=== PATIENT | male | born 1970 | race Caucasian/White ===

== ENCOUNTER 2021-05-19 22:36 | Inpatient (IN) | payer OTHER ==
--- NOTE | 2021-05-19 23:27 | ED ---
Recheck HPI - General Chief Complaint: Skin/Abscess/Foreign Body Stated Complaint: ABD Pain Time Seen by Provider: 05/19/21 23:10 Source: patient Mode of arrival: ambulatory Limitations: no limitations - Related Data Home Medications Medication Instructions Recorded Confirmed Esomeprazole Magnesium [NexIUM 20 mg PO DAILY 05/19/21 05/19/21 24Hr] Fexofenadine HCl [Aubrie Allergy] 180 mg PO DAILY 05/19/21 05/19/21 Allergies Allergy/AdvReac Type Severity Reaction Status Date / Time No Known Allergies Allergy Verified 05/19/21 23:43 Review of Systems ROS Statement: Those systems with pertinent positive or pertinent negative responses have been documented in the HPI. ROS Other: All systems not noted in ROS Statement are negative. Past Medical History Past Medical History: No Reported History History of Any Multi-Drug Resistant Organisms: None Reported Past Surgical History: No Surgical Hx Reported Past Psychological History: No Psychological Hx Reported Smoking Status: Current some day smoker Past Alcohol Use History: None Reported Past Drug Use History: None Reported General Exam Limitations: no limitations Course Vital Signs 05/19/21 23:16 Temperature 99.5 F Pulse Rate 101 H Respiratory 18 Rate Blood Pressure 150/76 O2 Sat by Pulse 98 Oximetry Disposition Clinical Impression: Abscess of right lung with pneumonia, Empyema Disposition: ADMITTED IP TO THIS HOSP Condition: Serious Is patient prescribed a controlled substance at d/c from ED?: No Referrals: None,Stated [REFERRING] - 1-2 days
[2021-05-19] MEDS ORDERED: PNEUMONIA PROTOCOL UTILIZED 1 EACH MISC PO PRN (23:48)
[2021-05-19] MEDS ORDERED: VANCOMYCIN IV PER PHARMACY 1 EACH MISC MISCELLANE PRN (23:48)
[2021-05-19] MEDS ORDERED: NALOXONE 0.4 MG/ML 1 ML VIAL IV PRN (23:48)
[2021-05-19] MEDS ORDERED: ONDANSETRON 4 MG/2 ML VIAL IVP PRN (23:48)
[2021-05-19] MEDS ORDERED: LEVOFLOXACIN 750MG-D5W PMX 750 MG in DEXTROSE/WATER 1 150ML.BAG IVPB STA (23:48)
[2021-05-20] MEDS ORDERED: VANCOMYCIN 1,500 MG in SODIUM CHLORIDE 0.9% 250 ML IVPB ONE (00:15)
[2021-05-20 00:49] LABS: Basophils # (A) 0.1 k/uL (0-0.2); Basophils % (A) 0 %; Eosinophils # (A) 0.1 k/uL (0-0.7); Eosinophils % (A) 0 %; HCT 38.9 % (39.0-53.0); HGB 12.8 gm/dL (13.0-17.5); Lymphocytes # (A) 2.9 k/uL (1.0-4.8); Lymphocytes % (A) 14 %; MCH 28.6 pg (25.0-35.0); MCV 86.7 fL (80.0-100.0); Mean Platelet Volume 7.3; Monocytes # (A) 1.1 k/uL (0-1.0); Monocytes % (A) 5 %; Neutrophils # (A) 15.8 k/uL (1.3-7.7); Neutrophils % (A) 77 %; Platelet Count 457 k/uL (150-450); RBC 4.49 m/uL (4.30-5.90); RDW 13.4 % (11.5-15.5); WBC 20.4 k/uL (3.8-10.6)
[2021-05-20] MEDS ORDERED: NICOTINE 21MG/24HR PATCH TRANSDERM STA (01:19)
--- NOTE | 2021-05-20 01:27 | XR ---
EXAMINATION TYPE: XR chest 1V portable DATE OF EXAM: 05/20/2021 COMPARISON: Yesterday HISTORY: Lung abscess TECHNIQUE: Single view FINDINGS: There is 11 cm rounded area of consolidation over the right lower lung field. There is blun ting right costophrenic angles. The left lung is clear. Heart size is normal. There is no heart failu re. IMPRESSION: Right lower lobe mass with right pleural effusion appears slightly increased in size comp ared to yesterday and consistent with lung abscess.
[2021-05-20] MEDS: SODIUM CHLORIDE 0.9% 1,000 ML IV SCH ×3 (01:29→22:59)
[2021-05-20] MEDS: metroNIDAZOLE-NS PMX 500 MG in SALINE 1 100ML.BAG IVPB SCH ×2 (02:13→08:11)
[2021-05-20 05:54] LABS: ALT 34 U/L (4-49); AST 32 U/L (17-59); African American GFR (CKD) >90 (>60 ml/min/1.73 sqM); Albumin 2.9 g/dL (3.5-5.0); Alkaline Phosphatase 161 U/L (38-126); Anion Gap 9 mmol/L; Blood Urea Nitrogen 11 mg/dL (9-20); Calcium 8.1 mg/dL (8.4-10.2); Carbon Dioxide 26 mmol/L (22-30); Chloride 104 mmol/L (98-107); Glucose 105 mg/dL (74-99); Lipase 72 U/L (23-300); Magnesium 1.6 mg/dL (1.6-2.3); Non-African American GFR(CKD) >90 (>60 ml/min/1.73 sqM); Phosphorus 3.3 mg/dL (2.5-4.5); Potassium 3.9 mmol/L (3.5-5.1); Sodium 139 mmol/L (137-145); Total Bilirubin 0.3 mg/dL (0.2-1.3); Total Protein 6.1 g/dL (6.3-8.2)
[2021-05-20] MEDS: IPRATROPIUM-ALBUTEROL 3 ML NEB INHALATION PRN (08:22)
[2021-05-20] MEDS: PANTOPRAZOLE 40 MG/10 ML VIAL IV SCH (09:26)
[2021-05-20] MEDS: NICOTINE 21MG/24HR PATCH TRANSDERM SCH (09:34)
--- NOTE | 2021-05-20 10:36 | P.CNPUL ---
History of Present Illness Consult date: 05/20/21 Reason for consult: dyspnea History of present illness: Healthy 51-year-old male patient coming in for increased shortness of breath. The patient developed a pneumonia approximately March 2021. At that time the diagnosis was made in the emergency department at [facility]. He had a right lower lobe pneumonia. He was experiencing some pleuritic right-sided chest pain. He was given a combination of Augmentin and Diflucan he was disch arged home. He was not hospitalized. The patient felt better, however he did not normalize completely. The pain is subsided. He continued to have some cough and shortness of breath and for that reason he went back to the emergency department and the patient had a CAT scan of the chest that showed a large right lower lobe posterior segment and severe segment fluid collection consistent with an abscess with adjacent atelectasis. His current white cell count is 20. He is on room air oxygen. No fever. No chills. No night sweats. Appetite is good. Renal function stable. Electrodes are within normal limits. No history of COPD. Is a smoker. No nausea. No vomiting. No diarrhea. No other complaints. No recurrent bouts of pneumonias. No active any malignancy. Review of Systems Constitutional: Reports fatigue Eyes: denies as per HPI, denies blurred vision, denies bulging eye, denies decreased vision, denies diplopia, denies discharge, denies dry eye, denies irritation, denies itching, denies pain, denies photophobia, denies loss of peripheral vision, denies loss of vision, denies tunnel vision/blind spots Ears: deny: decreased hearing, ear discharge, earache, tinnitus Ears, nose, mouth and throat: Reports as per HPI Breasts: absent: as per HPI, gynecomastia Cardiovascular: Reports as per HPI Respiratory: Reports cough, Reports dyspnea Gastrointestinal: Reports as per HPI Genitourinary: Reports as per HPI Musculoskeletal: Reports as per HPI Musculoskeletal: absent: ankle pain, ankle stiffness, ankle swelling Integumentary: Reports as per HPI Neurological: Reports as per HPI Psychiatric: Reports as per HPI Endocrine: Reports as per HPI Hematologic/Lymphatic: Reports as per HPI Allergic/Immunologic: Reports as per HPI Past Medical History Past Medical History: No Reported History, Pneumonia History of Any Multi-Drug Resistant Organisms: None Reported Past Surgical History: No Surgical Hx Reported Past Psychological History: No Psychological Hx Reported Smoking Status: Current some day smoker Past Alcohol Use History: None Reported Past Drug Use History: None Reported Medications and Allergies Home Medications Medication Instructions Recorded Confirmed Type Esomeprazole Magnesium [NexIUM 20 mg PO DAILY 05/19/21 05/19/21 History 24Hr] Fexofenadine HCl [Aubrie Allergy] 180 mg PO DAILY 05/19/21 05/19/21 History Allergies Allergy/AdvReac Type Severity Reaction Status Date / Time No Known Allergies Allergy Verified 05/19/21 23:43 Physical Exam Vitals: Vital Signs Temp Pulse Resp BP Pulse Ox 05/20/21 08:37 110 H 05/20/21 08:28 107 H 05/20/21 08:13 86 16 142/84 95 05/20/21 01:46 90 20 120/75 96 05/19/21 23:16 99.5 F 101 H 18 150/76 98 Intake and Output 05/19/21 05/20/21 05/20/21 22:59 06:59 14:59 Other: Weight 79.832 kg The patient appeared well nourished and normally developed. Vital signs as documented. Head exam is unremarkable. No scleral icterus or corneal arcus noted. Neck is without jugular venous distension, thyromegaly, or carotid bruits. Carotid upstrokes are brisk bilaterally. Lungs are diminished in the right lung base along with that there is dullness to percussion. Left lung essentially clear. Cardiac exam reveals the PMI to be normally sized and situated. Rhythm is regular. First and second heart sounds normal. No murmurs, rubs or gallops. Abdominal exam reveals normal bowel sounds, no masses, no organomegaly and no aortic enlargement. Extremities are nonedematous and both femoral and pedal pulses are normal.Examination of the skin revealed no evidence of significant rashes, suspicious appearing nevi or other concerning lesions.Neurologically, the patient is awake and alert and the patient does not have any focal neurological deficit. Cranial nerves are essentially intact. Results - Laboratory Findings CBC and BMP: 05/20/21 00:34 05/20/21 04:54 Abnormal lab findings: Abnormal Labs 05/20/21 05/20/21 00:34 04:54 WBC 20.4 H Hgb 12.8 L Hct 38.9 L Plt Count 457 H Neutrophils # 15.8 H Monocytes # 1.1 H Creatinine 0.65 L Glucose 105 H Calcium 8.1 L Alkaline Phosphatase 161 H Total Protein 6.1 L Albumin 2.9 L - Diagnostic Findings Chest x-ray: image reviewed CT scan - chest: image reviewed Assessment and Plan Plan: 1 Right lung abscess involving the posterior/superior segment of the right lower lobe. This is a fairly large abscess reaching the pleural surface with adjacent atelectasis and some limited consolidation. 2 right lower lobe pneumonia, March 2021 3 dyspnea and cough secondary to above 4 leukocytosis 5 smoker Plan Reviewed the CAT scan findings Discussed the case with interventional radiology Findings are very consistent with lung abscess The lung abscesses is very on the blood for a fine-needle aspirate and percutaneous drainage with a pigtail catheter. Discussed the case with Dr. Joel Romero M.D., interventional radiology. The procedure will be done today on the CAT scan guidance. We'll put the patient accommodation Zosyn and vancomycin. Will need long-term antibiotics probably in order of 4-6 weeks We'll consult infectious disease We'll provide the patient incentive spirometer We'll obtain fluid from the percutaneous drainage and send it for cultures Smoking cessation counseling Nicotine patch We'll follow.
[2021-05-20 12:05] LABS: INR 1.1 (<1.2); Prothrombin Time 11.4 sec (9.0-12.0)
--- NOTE | 2021-05-20 12:55 | XR ---
EXAMINATION TYPE: XR chest 1V portable DATE OF EXAM: 05/20/2021 Comparison: Earlier today Clinical History: 51-year-old male post right-sided chest drain insertion Findings: A pigtail pleural catheter is now present in the right base. No appreciable pneumothorax. Effusion an d large rounded opacity persist in the right mid and lower lung. Heart normal size. Impression: Relatively stable exam with small right effusion and known right lung abscess. New placement of a pig tail pleural catheter at the right base.
--- NOTE | 2021-05-20 13:20 | CT ---
EXAMINATION TYPE: CT chest tube insertion percutaneous lung abscess drainage DATE OF EXAM: 05/20/2021 COMPARISON: CT from outside institution dated 05/19/2021 HISTORY: right lung abscess CT DLP: 488 mGycm Automated exposure control for dose reduction was used. FINDINGS: Following informed consent, the skin overlying a suitable path to the abscess was localized with CT a nd the overlying skin was prepped and draped. Lidocaine was used for local anesthesia. Skin carly was made with a scalpel. 21-gauge needle was advanced into the collection and purulent material was obtai jack in the hub of the needle. A 0.018 inch wire was advanced and subsequently the wire was upsized fo r a transitional catheter and a 8.5 [place] catheter was advanced over the in upsized wire into the ab scess. 20 cc of purulent material were aspirated for laboratory analysis. Procedure stasis achieved. Catheter was fixed in place. No immediate complication. Patient remained i n stable condition. Post procedure chest x-ray pending. IMPRESSION: Status post lung abscess drainage, this procedure performed by the undersigned, microbiol ogy analysis is pending.
[2021-05-20] MEDS: MORPHINE SULFATE 4 MG/ML SYRINGE IV PRN ×2 (13:24→19:33)
[2021-05-20] MEDS: VANCOMYCIN 1,500 MG in SODIUM CHLORIDE 0.9% 250 ML IVPB SCH ×2 (14:01→19:56)
--- NOTE | 2021-05-20 14:01 | P.HPIM ---
History of Present Illness This is a pleasant 51 years old male with no significant past medical history. Patient states that last late March he was an [facility] for pneumonia where he was treated with antibiotics and steroids, patient felt better and he couldn't lie down and then he was discharged home however over the last week and a half he started to develop coughing and headache when he is lying down with only mild dyspnea, no significant dyspnea. No chest pain. No fever. No chest in urine or bowel habits. Patient went back to the hospital again on CAT scan of the chest showed large right lower lobe fluid collection: Consistent with an abscess and adjacent atelectasis. Patient also is a smoker who decided to quit yesterday, patient is counseled and he agrees with nicotine patch. Occasional alcohol and no illicit drugs Diabetic and leukocytosis of the 20.4. Rest of CBC, BMP and liver enzymes are unremarkable Chest x-ray showing small right effusion with known right lung abscess. New placement of a pigtail pleural catheter as the right base Vital showing tachycardia, rest of vital signs stable, patient is afebrile Patient is a started on IV vancomycin and Zosyn Review of Systems CONSTITUTIONAL: No fever, no malaise, no fatigue. HEENT: No recent visual problems or hearing problems. Denied any sore throat. CARDIOVASCULAR: No orthopnea, PND, no palpitations, no syncope. -PULMONARY: No shortness of breath, no hemoptysis. GASTROINTESTINAL: No diarrhea, no nausea, no vomiting, no abdominal pain. Normoactive bowel sounds. NEUROLOGICAL: No headaches, no weakness, no numbness. HEMATOLOGICAL: Denies any bleeding or petechiae. GENITOURINARY: Denies any burning micturition, frequency, or urgency. MUSCULOSKELETAL/RHEUMATOLOGICAL: Denies any joint pain, swelling, or any muscle pain. ENDOCRINE: Denies any polyuria or polydipsia. Past Medical History Past Medical History: No Reported History, Pneumonia History of Any Multi-Drug Resistant Organisms: None Reported Past Surgical History: No Surgical Hx Reported Past Psychological History: No Psychological Hx Reported Smoking Status: Current some day smoker Past Alcohol Use History: None Reported Past Drug Use History: None Reported Medications and Allergies Home Medications Medication Instructions Recorded Confirmed Type Esomeprazole Magnesium [NexIUM 20 mg PO DAILY 05/19/21 05/19/21 History 24Hr] Fexofenadine HCl [Aubrie Allergy] 180 mg PO DAILY 05/19/21 05/19/21 History Allergies Allergy/AdvReac Type Severity Reaction Status Date / Time No Known Allergies Allergy Verified 05/19/21 23:43 Physical Exam Vitals: Vital Signs Temp Pulse Resp BP Pulse Ox 05/20/21 08:37 110 H 05/20/21 08:28 107 H 05/20/21 08:13 86 16 142/84 95 05/20/21 01:46 90 20 120/75 96 05/19/21 23:16 99.5 F 101 H 18 150/76 98 Intake and Output 05/19/21 05/20/21 05/20/21 22:59 06:59 14:59 Other: Weight 79.832 kg GENERAL: The patient is alert and oriented x3, not in any acute distress. Well developed, well nourished. HEENT: Pupils are round and equally reacting to light. EOMI. No scleral icterus. No conjunctival pallor. Normocephalic, atraumatic. No pharyngeal erythema. No thyromegaly. CARDIOVASCULAR: S1 and S2 present. No murmurs, rubs, or gallops. -PULMONARY: Chest is clear to auscultation, no wheezing or crackles. Right lower back just to tube ABDOMEN: Soft, nontender, nondistended, normoactive bowel sounds. No palpable organomegaly. MUSCULOSKELETAL: No joint swelling or deformity. EXTREMITIES: No cyanosis, clubbing, or pedal edema. NEUROLOGICAL: Gross neurological examination did not reveal any focal deficits. SKIN: No rashes. No petechiae Results CBC & Chem 7: 05/20/21 00:34 05/20/21 04:54 Labs: Abnormal Lab Results - Last 24 Hours (Table) 05/20/21 05/20/21 Range/Units 00:34 04:54 WBC 20.4 H (3.8-10.6) k/uL Hgb 12.8 L (13.0-17.5) gm/dL Hct 38.9 L (39.0-53.0) % Plt Count 457 H (150-450) k/uL Neutrophils # 15.8 H (1.3-7.7) k/uL Monocytes # 1.1 H (0-1.0) k/uL Creatinine 0.65 L (0.66-1.25) mg/dL Glucose 105 H (74-99) mg/dL Calcium 8.1 L (8.4-10.2) mg/dL Alkaline Phosphatase 161 H (38-126) U/L Total Protein 6.1 L (6.3-8.2) g/dL Albumin 2.9 L (3.5-5.0) g/dL Assessment and Plan Assessment: Right lung abscess related to recent diagnosis of pneumonia about a month ago Sepsis with leukocytosis and tachycardia secondary to above Nicotine dependence Plan: This is a pleasant 51 years old male who presents with right lung abscess. Continue with antibiotics, currently is on IV vancomycin and Zosyn. Continue with IV fluid currently is on normal saline at 100 mL per hour Pulmonary consult Continue with right chest tube Labs and medication were reviewed.. Continue same treatment. Continue with symptomatic treatment. Resume home medication. Monitor lytes and vitals. DVT and GI prophylaxis. Further recommendations depends on the clinical course of the patient DVT prophylaxis: Subcutaneous heparin GI Prophylaxis: Pepcid
[2021-05-20] MEDS: PIPERACILLIN-TAZOBACTAM 3.375 GM in SODIUM CHLORIDE 0.9% 100 ML IVPB SCH ×2 (16:47→23:59)
[2021-05-20 19:01] LABS: Appearance,BF Cloudy; Color,BF Yellow; Nucleated Cells, Body Fluid 45555 /uL; RBC, Body Fluid 0 /uL
[2021-05-20 19:03] LABS: Mononuclear WBC,Body Fluid 11 %; Polynuclear WBC,Body Fluid 89 %; Total Cells Counted,Body Fluid 100
[2021-05-20] MEDS: FAMOTIDINE 20 MG/2 ML VIAL IV SCH (19:35)
[2021-05-20] MEDS: HEPARIN SODIUM,PORCINE/PF 5,000 UNIT/0.5 ML SYRINGE SQ SCH (19:35)
[2021-05-21] MEDS ORDERED: LEVOFLOXACIN 750MG-D5W PMX 750 MG in DEXTROSE/WATER 1 150ML.BAG IVPB SCH (02:00)
[2021-05-21] MEDS: VANCOMYCIN 1,500 MG in SODIUM CHLORIDE 0.9% 250 ML IVPB SCH ×3 (04:22→20:42)
[2021-05-21] MEDS: MORPHINE SULFATE 4 MG/ML SYRINGE IV PRN ×2 (04:22→20:56)
[2021-05-21] MEDS: SODIUM CHLORIDE 0.9% 1,000 ML IV SCH ×2 (06:15→16:40)
[2021-05-21] MEDS: HEPARIN SODIUM,PORCINE/PF 5,000 UNIT/0.5 ML SYRINGE SQ SCH ×2 (08:44→20:42)
[2021-05-21] MEDS: FAMOTIDINE 20 MG/2 ML VIAL IV SCH ×2 (08:44→20:42)
[2021-05-21] MEDS: PIPERACILLIN-TAZOBACTAM 3.375 GM in SODIUM CHLORIDE 0.9% 100 ML IVPB SCH ×2 (08:45→16:43)
[2021-05-21] MEDS: NICOTINE 21MG/24HR PATCH TRANSDERM SCH (08:45)
[2021-05-21] MEDS: PANTOPRAZOLE 40 MG/10 ML VIAL IV SCH (08:45)
[2021-05-21 09:23] LABS: Basophils # (A) 0.09 X 10*3/uL (0.00-0.10); Basophils % (A) 0.7 %; Eosinophils # (A) 0.05 X 10*3/uL (0.04-0.35); Eosinophils % (A) 0.4 %; HCT 39.3 % (39.6-50.0); HGB 12.4 g/dL (13.0-17.0); Lymphocytes # (A) 2.62 X 10*3/uL (0.90-5.00); Lymphocytes % (A) 19.2 %; MCH 27.7 pg (27.0-32.0); MCHC 31.6 g/dL (32.0-37.0); MCV 87.7 fL (80.0-97.0); Mean Platelet Volume 10.6 fL (9.5-12.2); Monocytes # (A) 1.26 X 10*3/uL (0.20-1.00); Monocytes % (A) 9.2 %; Neutrophils # (A) 9.57 X 10*3/uL (1.80-7.70); Platelet Count 456 X 10*3/uL (140-440); RBC 4.48 X 10*6/uL (4.40-5.60); RDW 13.4 % (11.5-14.5); WBC 13.66 X 10*3/uL (4.50-10.00)
[2021-05-21] MEDS: IPRATROPIUM-ALBUTEROL 3 ML NEB INHALATION PRN (10:00)
--- NOTE | 2021-05-21 10:16 | P.PN ---
Subjective Progress Note Date: 05/21/21 Healthy 51-year-old male patient coming in for increased shortness of breath. The patient developed a pneumonia approximately March 2021. At that time the diagnosis was made in the emergency department at [facility]. He had a right lower lobe pneumonia. He was experiencing some pleuritic right-sided chest pain. He was given a combination of Augmentin and Diflucan he was discharged home. He was not hospitalized. The patient felt better, however he did not normalize completely. The pain is subsided. He continued to have some cough and shortness of breath and for that reason he went back to the emergency department and the patient had a CAT scan of the chest that showed a large right lower lobe posterior segment and severe segment fluid collection consistent with an abscess with adjacent atelectasis. His current white cell count is 20. He is on room air oxygen. No fever. No chills. No night sweats. Appetite is good. Renal function stable. Electrodes are within normal limits. No history of COPD. Is a smoker. No nausea. No vomiting. No diarrhea. No other complaints. No recurrent bouts of pneumonias. No active any malignancy. On today's evaluation on 05/21/2021 patient seen in follow-up on medical surgical floor. Yesterday a pigtail chest tube was put in in the right posterior chest, with initial drainage of 20 mL of purulent material, Pleuravac was connected, an additional 640 mL of purulent material was drained. On today's evaluation patient is on 3 L of oxygen his pulse ox is 92%, he states he breathing much more comfortably, some pressure in his right chest process, however it has improved since admission, he is on Zosyn and vancomycin for antibiotic coverage, no fever or chills overnight, his white blood cell count is improving on today's labs, follow-up chest x-ray is pending for today. Objective - Vital Signs Vital signs: Vital Signs Temp 98.3 F 05/21/21 09:35 Pulse 100 05/21/21 10:01 Resp 18 05/21/21 10:01 BP 127/77 05/21/21 09:35 Pulse Ox 92 L 05/21/21 09:35 Intake & Output 05/20/21 05/21/21 05/21/21 18:59 06:59 18:59 Output Total 640 Balance -640 Weight 79.832 kg Output: Drainage 640 Right Lateral Back 640 - Exam GENERAL EXAM: Alert, very pleasant, 51-year-old white male, on 3 L of oxygen and pulse ox 92%, sitting up in bed, comfortable in no apparent distress. HEAD: Normocephalic/atraumatic. EYES: Normal reaction of pupils, equal size. Conjunctiva pink, sclera white. NOSE: Clear with pink turbinates. THROAT: No erythema or exudates. NECK: No masses, no JVD, no thyroid enlargement, no adenopathy. CHEST: No chest wall deformity. Symmetrical expansion. Right posterior chest pigtail chest tube present active to Pleur-evac, with a total of 640 mL of purulent material in the Pleur-evac. Pleuravac is connected to wall suction, and there is no evidence of air leak LUNGS: Equal air entry with basilar crackles CVS: Regular rate and rhythm, normal S1 and S2, no gallops, no murmurs, no rubs ABDOMEN: Soft, nontender. No hepatosplenomegaly, normal bowel sounds, no guarding or rigidity. EXTREMITIES: No clubbing, no edema, no cyanosis, 2+ pulses and upper and lower extremities. MUSCULOSKELETAL: Muscle strength and tone normal. SPINE: No scoliosis or deformity SKIN: No rashes CENTRAL NERVOUS SYSTEM: Alert and oriented -3. No focal deficits, tone is normal in all 4 extremities. PSYCHIATRIC: Alert and oriented -3. Appropriate affect. Intact judgment and insight. - Labs CBC & Chem 7: 05/21/21 05:37 05/20/21 04:54 Labs: Abnormal Lab Results - Last 24 Hours (Table) 05/21/21 Range/Units 05:37 WBC 13.66 H (4.50-10.00) X 10*3/uL Hgb 12.4 L (13.0-17.0) g/dL Hct 39.3 L (39.6-50.0) % MCHC 31.6 L (32.0-37.0) g/dL Plt Count 456 H (140-440) X 10*3/uL Immature Gran # 0.07 H (0.00-0.04) X 10*3/uL Neutrophils # 9.57 H (1.80-7.70) X 10*3/uL Monocytes # 1.26 H (0.20-1.00) X 10*3/uL Microbiology - Last 24 Hours (Table) 05/20/21 12:25 Gram Stain - Preliminary Pleural Fluid Body Fluid Culture - Preliminary 05/20/21 00:34 Blood Culture - Preliminary Blood No Growth after 24 hours 05/20/21 00:15 Blood Culture - Preliminary Blood No Growth after 24 hours 05/20/21 12:25 Acid Fast Bacilli Culture - Preliminary Pleural Fluid 05/20/21 12:25 Fungal Culture - Preliminary Pleural Fluid 05/20/21 12:25 Anaerobic Culture - Preliminary Pleural Fluid Assessment and Plan Plan: Assessment: 1 Right lung abscess involving the posterior/superior segment of the right lower lobe. This is a fairly large abscess reaching the pleural surface with adjacent atelectasis and some limited consolidation. S/P right sided pig tail chest tube placement with removal of a 20 cc of purulent initially, and subsequently there was an additional 640 mL of purulent drainage in the Pleur-evac, awaiting final cultures, so far Gram stain showing no organisms, currently medical ridges with Zosyn and vancomycin 2 right lower lobe pneumonia, March 2021 3 dyspnea and cough secondary to above 4 leukocytosis 5 smoker Plan: We will current antibiotics Awaiting final cultures Follow-up chest x-ray is pending May consider TPA infusion Leucocytosis is improving, no fever or chills overnight Time with Patient: Less than 30
--- NOTE | 2021-05-21 10:44 | XR ---
EXAMINATION TYPE: XR chest 1V portable DATE OF EXAM: 05/21/2021 COMPARISON: Prior chest x-ray 05/20/2021 HISTORY: Empyema, lung abscess TECHNIQUE: Single frontal view of the chest is obtained. FINDINGS: Right-sided lower lung drainage catheter remains in place, there is interval improved aera tion at the right lung base, there is persistent thickening along the right lateral chest margin. No evident pneumothorax. Cardiac mediastinal silhouette is stable. Left lung is spared. IMPRESSION: Interval improvement in patient's lung abscess, aeration within the lung. Persistent ple ural thickening, atelectatic changes are present.
[2021-05-21] MEDS ORDERED: VANCOMYCIN TROUGH DUE 1 EACH MISC MISCELLANE ONE (11:00)
[2021-05-21 11:13] LABS: African American GFR (CKD) >90 (>60 ml/min/1.73 sqM); Non-African American GFR(CKD) >90 (>60 ml/min/1.73 sqM)
[2021-05-21] MEDS ORDERED: DORNASE ALFA 5 MG in SODIUM CHLORIDE 0.9% 50 ML IRRIGATION ONE (11:58)
[2021-05-21] MEDS ORDERED: ALTEPLASE 10 MG in SODIUM CHLORIDE 0.9% 50 ML IRRIGATION ONE (11:58)
[2021-05-21 12:16] LABS: African American GFR (CKD) 125.8 (60.0-200.0); Anion Gap 11.6 mmol/L (4.00-12.00); BUN/Creat Ratio 14.29 Ratio (12.00-20.00); Calcium 7.7 mg/dL (8.7-10.3); Carbon Dioxide 25.4 mmol/L (21.6-31.8); Non-African American GFR(CKD) 108.5 (60.0-200.0); Potassium 3.7 mmol/L (3.5-5.5)
--- NOTE | 2021-05-21 12:27 | P.GSCN ---
History of Present Illness Consult date: 05/21/21 Reason for Consult: Right-sided empyema Requesting physician: Claribel Fuentes History of present illness: This is a 51-year-old gentleman who does not follow with a primary care physician on a regular basis. He has a past medical history significant for GERD, recent abscess tooth without treatment, seasonal ALLERGIES and current every day smoker. Recently, the patient was diagnosed with a right lower lobe pneumonia in March 2021 and was subsequently seen in the emergency department at [facility] in [place]. The patient reports he was treated with Augmentin and Diflucan and a steroid inhaler and was discharged home. He reports that he started feeling better after taking the medicine although a few days ago developed some progressive shortness of breath with activity, right- sided pleuritic chest pain and was experiencing worsening fatigue. He denies any recent fever, chills, nausea, vomiting, diarrhea, constipation, hematemesis, hemoptysis, lightheadedness, night sweats, presyncope or syncopal. He does although reports that he does have a occasional cough with scant white sputum worse when he is laying flat. Subsequently, due to the patient's symptoms he reported back to the emergency department and underwent a computed tomography scan of the chest that showed a right large lower lobe posterior segment and severe segment fluid collection consistent with abscess with adjacent atelecta sis. The patient was transferred to [facility] for further workup and treatment recommendations. Initial laboratory results showed a WBC count 20.4, hemoglobin 12.8, hematocrit 38.9 platelets 457, sodium 139, potassium 3.9, BUN 11, and creatinine 0.65. A chest x-ray was completed which showed a right lower lobe mass with right pleural effusion consistent with lung abscess. He was started on antibiotic coverage with Zosyn, was given a dose of Levaquin and vancomycin. Due to the findings of right lung abscess he underwent a CT guided chest tube insertion percutaneous lung abscess drainage yesterday performed by interventional radiology. Currently the pigtail catheter remains in place and has drained 300 mL of purulent colored drainage over the last 24 hours. The patient denies any complaints of shortness of breath at this time, remains on room air with oxygen saturations 96% and he is achieving 1250 mL on his incentive spirometry and remains afebrile last 24 hours. Subsequently, Dr. Gomez from cardiothoracic surgery was consulted due to the right lung abscess for further evaluation and treatment recommendations. Review of Systems A 14 point review of systems was completed and is negative except as mentioned in HPI. Past Medical History Past Medical History: GERD/Reflux, Pneumonia Additional Past Medical History / Comment(s): Seasonal ALLERGIES History of Any Multi-Drug Resistant Organisms: None Reported Past Surgical History: No Surgical Hx Reported Past Anesthesia/Blood Transfusion Reactions: No Reported Reaction Past Psychological History: No Psychological Hx Reported Smoking Status: Current every day smoker Past Alcohol Use History: Occasional Past Drug Use History: None Reported - Past Family History Mother Family Medical History: No Reported History Father Additional Family Medical History / Comment(s): History of mesothelioma Medications and Allergies Home Medications Medication Instructions Recorded Confirmed Type Esomeprazole Magnesium [NexIUM 20 mg PO DAILY 05/19/21 05/19/21 History 24Hr] Fexofenadine HCl [Aubrie Allergy] 180 mg PO DAILY 05/19/21 05/19/21 History Allergies Allergy/AdvReac Type Severity Reaction Status Date / Time No Known Allergies Allergy Verified 05/19/21 23:43 Surgical - Exam Vital Signs Temp Pulse Resp BP Pulse Ox 99.5 F 101 H 18 150/76 98 05/19/21 23:16 05/19/21 23:16 05/19/21 23:16 05/19/21 23:16 05/19/21 23:16 - General well developed, well nourished, no distress, no pain - Eyes PERRL, normal ocular movement, no pale, no icteric - ENT normal pinna, normal nares, normal mucosa, no hearing loss, no congestion, poor [facility] - Neck Neck is supple, no lymphadenopathy. no masses, no bruits, trachea midline, no venous distension - Respiratory Lung sounds with few scattered crackles throughout, diminished to his bilateral bases right greater than left. Respirations are symmetrical and nonlabored. Oxygen saturation is 96% on room air. Achieving 1250 mL on his incentive spirometry. Right chest pigtail catheter in place to low continuous wall sands ction -20 cm H2O. No air leak is present. Draining purulent colored drainage with 300 mL output in the last 24 hours. - Cardiovascular Regular rhythm and rate. S1 and S2 present, negative for S3, gallop or murmur. No edema present. Peripheral pulses palpable. - Abdomen Abdomen is soft, nontender and nondistended. No guarding or rigidity. No organomegaly appreciated. Active bowel sounds present all 4 abdominal quadrants. - Genitourinary Deferred - Rectum Deferred - Integumentary no rash, no growths, no abnormal pigmentation - Neurologic Cranial nerves II through XII intact. No focal deficits. normal coordination, normal sensation - Musculoskeletal Muscle strength and tone normal. normal gait, normal posture - Psychiatric oriented to time, oriented to person, oriented to place, speech is normal, memory intact Results - Labs 05/21/21 05:37 05/21/21 10:39 Abnormal Lab Results - Last 24 Hours (Table) 05/21/21 Range/Units 05:37 WBC 13.66 H (4.50-10.00) X 10*3/uL Hgb 12.4 L (13.0-17.0) g/dL Hct 39.3 L (39.6-50.0) % MCHC 31.6 L (32.0-37.0) g/dL Plt Count 456 H (140-440) X 10*3/uL Immature Gran # 0.07 H (0.00-0.04) X 10*3/uL Neutrophils # 9.57 H (1.80-7.70) X 10*3/uL Monocytes # 1.26 H (0.20-1.00) X 10*3/uL Microbiology - Last 24 Hours (Table) 05/20/21 12:25 Gram Stain - Preliminary Pleural Fluid Body Fluid Culture - Preliminary 05/20/21 00:34 Blood Culture - Preliminary Blood No Growth after 24 hours 05/20/21 00:15 Blood Culture - Preliminary Blood No Growth after 24 hours 05/20/21 12:25 Acid Fast Bacilli Culture - Preliminary Pleural Fluid 05/20/21 12:25 Fungal Culture - Preliminary Pleural Fluid 05/20/21 12:25 Anaerobic Culture - Preliminary Pleural Fluid Diabetes panel 05/21/21 Range/Units 10:39 Creatinine 0.67 (0.66-1.25) mg/dL Pituitary panel 05/21/21 Range/Units 10:39 Creatinine 0.67 (0.66-1.25) mg/dL Adrenal panel 05/21/21 Range/Units 10:39 Creatinine 0.67 (0.66-1.25) mg/dL - Imaging Chest x-ray: report reviewed, image reviewed CT scan - chest: report reviewed, image reviewed Assessment and Plan Assessment: 1. Right lung abscess, status post right-sided pigtail chest tube placement by interventional radiology 2. Recent right lower lobe pneumonia March 2021 3. Dyspnea secondary to above 4. Leukocytosis, secondary to above 5. Recent abscessed tooth, untreated 6. Chronic ongoing tobacco dependence 7. GERD 8. Seasonal ALLERGIES Plan: The patient was seen and examined at his bedside on the fourth floor medical surgical unit. His chart and diagnostics were reviewed. The patient's was present at his bedside. His case was discussed in detail with Dr. Emma Gomez from cardiothoracic surgery. Keep right chest pigtail catheter tube in place. We will instill a combination of alteplase 10 mg/50 mL of normal saline and Dornase 5 mg/50 mL of normal saline through his pigtail catheter. Continue antibiotic management per pulmonary/critical care recommendations. Medical management other comorbidities per primary care service. No surgical intervention is planned at this time. More recommendations to follow based on patient's clinical course. Thank you Dr. Fuentes for this consult and we will look forward to working with you in the care of this patient. Time with Patient: Greater than 30
--- NOTE | 2021-05-21 14:25 | P.PN ---
Subjective This is a pleasant 51 years old male with no significant past medical history. Patient states that last late March he was [facility] where he was treated with antibiotics and steroids, patient felt better and he couldn't lie down and then he was discharged home however over the last week and a half he started to develop coughing and headache when he is lying down with only mild dyspnea, no significant dyspnea. No chest pain. No fever. No chest in urine or bowel habits. Patient went back to the hospital again on CAT scan of the chest showed large right lower lobe fluid collection: Consistent with an abscess and adjacent atelectasis. Patient also is a smoker who decided to quit yesterday, patient is counseled and he agrees with nicotine patch. Occasional alcohol and no illicit drugs Diabetic and leukocytosis of the 20.4. Rest of CBC, BMP and liver enzymes are unremarkable Chest x-ray showing small right effusion with known right lung abscess. New placement of a pigtail pleural catheter as the right base Vital showing tachycardia, rest of vital signs stable, patient is afebrile Patient is a started on IV vancomycin and Zosyn 05/21/2021 Patient is a breathing is much improved, he is minimally dyspneic. Vital signs stable and he is afebrile High WBC significantly improved down to 13 Chest x-ray showing significant improvement in his lung abscess He still has pigtail in his right lower lung placed by interventional radiologist, cardiothoracic surgery team were consulted today for of the base and normal saline infusion into the abscess He remains on broad-spectrum antibiotics with Zosyn and IV vancomycin and no muscle and aunt 100 mL per hour Objective - Vital Signs Vital signs: Vital Signs Temp 98.3 F 05/21/21 09:35 Pulse 100 05/21/21 10:10 Resp 18 05/21/21 10:10 BP 127/77 05/21/21 09:35 Pulse Ox 92 L 05/21/21 09:35 Intake & Output 05/20/21 05/21/21 05/21/21 18:59 06:59 18:59 Output Total 640 Balance -640 Weight 79.832 kg Output: Drainage 640 Right Lateral Back 640 - Exam GENERAL: The patient is alert and oriented x3, not in any acute distress. Well developed, well nourished. HEENT: Pupils are round and equally reacting to light. EOMI. No scleral icterus. No conjunctival pallor. Normocephalic, atraumatic. No pharyngeal erythema. No thyromegaly. CARDIOVASCULAR: S1 and S2 present. No murmurs, rubs, or gallops. -PULMONARY: Chest is clear to auscultation, no wheezing or crackles. Right lower back just to tube ABDOMEN: Soft, nontender, nondistended, normoactive bowel sounds. No palpable organomegaly. MUSCULOSKELETAL: No joint swelling or deformity. EXTREMITIES: No cyanosis, clubbing, or pedal edema. NEUROLOGICAL: Gross neurological examination did not reveal any focal deficits. SKIN: No rashes. No petechiae - Labs CBC & Chem 7: 05/21/21 05:37 05/21/21 10:39 Labs: Abnormal Lab Results - Last 24 Hours (Table) 05/21/21 05/21/21 Range/Units 05:37 05:37 WBC 13.66 H (4.50-10.00) X 10*3/uL Hgb 12.4 L (13.0-17.0) g/dL Hct 39.3 L (39.6-50.0) % MCHC 31.6 L (32.0-37.0) g/dL Plt Count 456 H (140-440) X 10*3/uL Immature Gran # 0.07 H (0.00-0.04) X 10*3/uL Neutrophils # 9.57 H (1.80-7.70) X 10*3/uL Monocytes # 1.26 H (0.20-1.00) X 10*3/uL Calcium 7.7 L (8.7-10.3) mg/dL Microbiology - Last 24 Hours (Table) 05/20/21 12:25 Gram Stain - Preliminary Pleural Fluid Body Fluid Culture - Preliminary 05/20/21 00:34 Blood Culture - Preliminary Blood No Growth after 24 hours 05/20/21 00:15 Blood Culture - Preliminary Blood No Growth after 24 hours 05/20/21 12:25 Acid Fast Bacilli Culture - Preliminary Pleural Fluid 05/20/21 12:25 Fungal Culture - Preliminary Pleural Fluid 05/20/21 12:25 Anaerobic Culture - Preliminary Pleural Fluid Assessment and Plan Assessment: Right lung abscess related to recent diagnosis of pneumonia about a month ago Sepsis with leukocytosis and tachycardia secondary to above Nicotine dependence Plan: This is a pleasant 51 years old male who presents with right lung abscess. Continue with antibiotics, currently is on IV vancomycin and Zosyn. Continue with IV fluid currently is on normal saline at 100 mL per hour Pulmonary consult Cardiothoracic surgery consult for alteplase normal S1 effusion Continue with right chest pigtail Labs and medication were reviewed.. Continue same treatment. Continue with symptomatic treatment. Resume home medication. Monitor lytes and vitals. DVT and GI prophylaxis. Further recommendations depends on the clinical course of the patient DVT prophylaxis: Subcutaneous heparin GI Prophylaxis: Pepcid
[2021-05-22] MEDS: PIPERACILLIN-TAZOBACTAM 3.375 GM in SODIUM CHLORIDE 0.9% 100 ML IVPB SCH ×3 (00:48→16:11)
[2021-05-22] MEDS: SODIUM CHLORIDE 0.9% 1,000 ML IV SCH ×3 (00:49→19:18)
[2021-05-22] MEDS: MORPHINE SULFATE 4 MG/ML SYRINGE IV PRN ×3 (04:05→19:27)
[2021-05-22] MEDS: VANCOMYCIN 1,500 MG in SODIUM CHLORIDE 0.9% 250 ML IVPB SCH ×3 (05:04→21:20)
--- NOTE | 2021-05-22 07:21 | XR ---
EXAMINATION TYPE: XR chest 1V portable DATE OF EXAM: 05/22/2021 COMPARISON: Chest x-ray 05/21/2021 HISTORY: Lung abscess, chest tube, right empyema TECHNIQUE: Single frontal view of the chest is obtained. FINDINGS: Findings are similar to prior exam. Chest tube remains in place. Pleural-parenchymal lal es of the right lung base are stable. Left lung is spared. Cardiac mediastinal silhouette is unchange d. IMPRESSION: Findings consistent with patient's history of empyema and lung abscess, stable.
[2021-05-22 07:22] LABS: Basophils # (A) 0.1 k/uL (0-0.2); Basophils % (A) 1 %; Eosinophils # (A) 0.2 k/uL (0-0.7); Eosinophils % (A) 2 %; HCT 40.1 % (39.0-53.0); HGB 12.8 gm/dL (13.0-17.5); Lymphocytes # (A) 2.8 k/uL (1.0-4.8); Lymphocytes % (A) 27 %; MCH 28.6 pg (25.0-35.0); MCHC 31.9 g/dL (31.0-37.0); MCV 89.9 fL (80.0-100.0); Mean Platelet Volume 7.9; Monocytes # (A) 0.7 k/uL (0-1.0); Monocytes % (A) 7 %; Neutrophils # (A) 6.5 k/uL (1.3-7.7); Neutrophils % (A) 62 %; Platelet Count 450 k/uL (150-450); RBC 4.46 m/uL (4.30-5.90); WBC 10.5 k/uL (3.8-10.6)
[2021-05-22] MEDS: FAMOTIDINE 20 MG/2 ML VIAL IV SCH ×2 (07:23→21:21)
[2021-05-22] MEDS: PANTOPRAZOLE 40 MG/10 ML VIAL IV SCH (07:23)
[2021-05-22] MEDS: HEPARIN SODIUM,PORCINE/PF 5,000 UNIT/0.5 ML SYRINGE SQ SCH ×2 (07:24→21:22)
[2021-05-22] MEDS: NICOTINE 21MG/24HR PATCH TRANSDERM SCH (07:25)
[2021-05-22 07:30] LABS: African American GFR (CKD) >90 (>60 ml/min/1.73 sqM); Anion Gap 8 mmol/L; Blood Urea Nitrogen 9 mg/dL (9-20); Calcium 8.2 mg/dL (8.4-10.2); Carbon Dioxide 26 mmol/L (22-30); Chloride 107 mmol/L (98-107); Glucose 107 mg/dL (74-99); Non-African American GFR(CKD) >90 (>60 ml/min/1.73 sqM); Potassium 3.5 mmol/L (3.5-5.1); Sodium 141 mmol/L (137-145)
--- NOTE | 2021-05-22 11:43 | P.PN ---
Subjective Progress Note Date: 05/22/21 Principal diagnosis: Right lung abscess, status post right-sided pigtail chest tube placement by interventional radiology 2. Recent right lower lobe pneumonia March 2021 3. Dyspnea secondary to above 4. Leukocytosis, secondary to above 5. Recent abscessed tooth, untreated 6. Chronic ongoing tobacco dependence 7. GERD 8. Seasonal ALLERGIES The patient is currently sitting up in a recliner in the medical surgical unit in no acute distress. Denies pain or shortness of breath. States he has been ambulatory several times in the hallway without difficulty. Right-sided pigtail catheter placed yesterday with instillation of alteplase/dornase and evacuation of thick yellow fluid. Remains on IV antibiotics. Await culture results. No other new concerns. Objective - Vital Signs Vital signs: Vital Signs Temp 98.1 F 05/22/21 08:00 Pulse 79 05/22/21 08:00 Resp 16 05/22/21 08:00 BP 152/96 05/22/21 08:00 Pulse Ox 97 05/22/21 08:00 Intake & Output 05/21/21 05/22/21 05/22/21 18:59 06:59 18:59 Intake Total 236 Balance 236 Intake: Oral 236 Other: # Voids 2 2 - Exam CONSTITUTIONAL: Appears comfortable, cooperative, no acute distress RESPIRATORY: Lungs sounds diminished in the right base. Respirations even, nonlabored. Currently on room air with oxygen saturation 97%. Able to achieve 1750 mL on incentive spirometry. Strong cough. CARDIOVASCULAR: S1, S2 present. Regular rate and rhythm. Palpable peripheral pulses bilaterally. No edema present. No calf pain or tenderness noted. GASTROINTESTINAL: Abdomen soft, nontender, nondistended. Active bowel sounds present 4 quadrants. Tolerating diet. GENITOURINARY: Continues to void clear, yellow urine INTEGUMENTARY: Skin is warm and dry with evidence of good perfusion. NEUROLOGIC: Cranial nerves II through XII intact MUSKULOSKELETAL: Able to move all extremities, strength equal bilaterally, gait normal PSYCHIATRIC: Alert and oriented to person place and time, appropriate affect, intact judgment and insight INVASIVE LINES AND TUBES: Right atrial catheter present and connected to wall suction, no air leaks present, 100 mL thick yellow fluid since lytic instillation. - Allied health notes Allied health notes reviewed: nursing - Labs CBC & Chem 7: 05/22/21 06:57 05/22/21 06:57 Labs: Abnormal Lab Results - Last 24 Hours (Table) 05/21/21 05/21/21 05/22/21 Range/Units 05:37 05:37 06:57 WBC 13.66 H (4.50-10.00) X 10*3/uL Hgb 12.4 L 12.8 L (13.0-17.0) g/dL Hct 39.3 L (39.6-50.0) % MCHC 31.6 L (32.0-37.0) g/dL Plt Count 456 H (140-440) X 10*3/uL Immature Gran # 0.07 H (0.00-0.04) X 10*3/uL Neutrophils # 9.57 H (1.80-7.70) X 10*3/uL Monocytes # 1.26 H (0.20-1.00) X 10*3/uL Glucose (74-99) mg/dL Calcium 7.7 L (8.7-10.3) mg/dL 05/22/21 Range/Units 06:57 WBC (4.50-10.00) X 10*3/uL Hgb (13.0-17.0) g/dL Hct (39.6-50.0) % MCHC (32.0-37.0) g/dL Plt Count (140-440) X 10*3/uL Immature Gran # (0.00-0.04) X 10*3/uL Neutrophils # (1.80-7.70) X 10*3/uL Monocytes # (0.20-1.00) X 10*3/uL Glucose 107 H (74-99) mg/dL Calcium 8.2 L (8.7-10.3) mg/dL Microbiology - Last 24 Hours (Table) 05/20/21 00:34 Blood Culture - Preliminary Blood No Growth after 48 hours 05/20/21 00:15 Blood Culture - Preliminary Blood No Growth after 48 hours 05/20/21 12:25 Acid Fast Bacilli Smear - Final Pleural Fluid Acid Fast Bacilli Culture - Preliminary 05/20/21 12:25 Gram Stain - Preliminary Pleural Fluid Body Fluid Culture - Preliminary - Imaging and Cardiology Chest x-ray: report reviewed, image reviewed Assessment and Plan Assessment: 1. Right lung abscess, status post right-sided pigtail chest tube placement by interventional radiology 2. Recent right lower lobe pneumonia March 2021 3. Dyspnea secondary to above 4. Leukocytosis, secondary to above 5. Recent abscessed tooth, untreated 6. Chronic ongoing tobacco dependence Plan: 1. Will instill lytic therapy again today through his pigtail catheter and allowed to dwell for approximately 1 hour. 2. No plans for surgical intervention at this time, although surgery was discussed with the patient should current treatment fail 3. Antibiotic management per pulmonology 4. Patient was counseled regarding cessation of smoking 5. Will monitor daily x-rays 6. Medical management of other comorbidities per primary care service 7. More recommendations to follow Time with Patient: Greater than 30
[2021-05-22] MEDS ORDERED: DORNASE ALFA 5 MG in SODIUM CHLORIDE 0.9% 50 ML IRRIGATION ONE (14:00)
[2021-05-22] MEDS ORDERED: ALTEPLASE 10 MG in SODIUM CHLORIDE 0.9% 50 ML IRRIGATION ONE (14:00)
--- NOTE | 2021-05-22 17:35 | P.PN ---
Subjective Progress Note Date: 05/22/21 Healthy 51-year-old male patient coming in for increased shortness of breath. The patient developed a pneumonia approximately March 2021. At that time the diagnosis was made in the emergency department at [facility]. He had a right lower lobe pneumonia. He was experiencing some pleuritic right-sided chest pain. He was given a combination of Augmentin and Diflucan he was discharged home. He was not hospitalized. The patient felt better, however he did not normalize completely. The pain is subsided. He continued to have some cough and shortness of breath and for that reason he went back to the emergency department and the patient had a CAT scan of the chest that showed a large right lower lobe posterior segment and severe segment fluid collection consistent with an abscess with adjacent atelectasis. His current white cell count is 20. He is on room air oxygen. No fever. No chills. No night sweats. Appetite is good. Renal function stable. Electrodes are within normal limits. No history of COPD. Is a smoker. No nausea. No vomiting. No diarrhea. No other complaints. No recurrent bouts of pneumonias. No active any malignancy. On today's evaluation on 05/21/2021 patient seen in follow-up on medical surgical floor. Yesterday a pigtail chest tube was put in in the right posterior chest, with initial drainage of 20 mL of purulent material, Pleuravac was connected, an additional 640 mL of purulent material was drained. On today's evaluation patient is on 3 L of oxygen his pulse ox is 92%, he states he breathing much more comfortably, some pressure in his right chest process, however it has improved since admission, he is on Zosyn and vancomycin for antibiotic coverage, no fever or chills overnight, his white blood cell count is improving on today's labs, follow-up chest x-ray is pending for today. On 05/22/2021 patient seen in follow-up on medical surgical floor, he is on room air, pulse ox is 97-99%, his been afebrile. Blood pressure is been stable, his right-sided pigtail chest tube remains in place, yesterday he received a dose of TPA instilled in his chest tube was in additional drainage of thick yellow fluid. So far all pleural fluid cultures have been negative. he remains on IV antibiotics. 's been tolerating ambulation. Chest x-ray shows pleural parenchymal changes of the right lung base that are stable in appearance. Today's labs have been reviewed, his white blood cell count is 10.5, hemoglobin is 12.8, electrolytes and renal profile are within normal limits. Objective - Vital Signs Vital signs: Vital Signs Temp 97.8 F 05/22/21 14:00 Pulse 80 05/22/21 14:00 Resp 16 05/22/21 14:00 BP 157/96 05/22/21 14:00 Pulse Ox 99 05/22/21 14:00 Intake & Output 05/21/21 05/22/21 05/22/21 18:59 06:59 18:59 Intake Total 236 Balance 236 Intake: Oral 236 Other: # Voids 2 2 - Exam GENERAL EXAM: Alert, very pleasant, 51-year-old white male, on 3 L of oxygen and pulse ox 92%, sitting up in bed, comfortable in no apparent distress. HEAD: Normocephalic/atraumatic. EYES: Normal reaction of pupils, equal size. Conjunctiva pink, sclera white. NOSE: Clear with pink turbinates. THROAT: No erythema or exudates. NECK: No masses, no JVD, no thyroid enlargement, no adenopathy. CHEST: No chest wall deformity. Symmetrical expansion. Right posterior chest pigtail chest tube present active to Pleur-evac, with a total of 640 mL of purulent material in the Pleur-evac. Pleuravac is connected to wall suction, and there is no evidence of air leak LUNGS: Equal air entry with basilar crackles CVS: Regular rate and rhythm, normal S1 and S2, no gallops, no murmurs, no rubs ABDOMEN: Soft, nontender. No hepatosplenomegaly, normal bowel sounds, no guarding or rigidity. EXTREMITIES: No clubbing, no edema, no cyanosis, 2+ pulses and upper and lower extremities. MUSCULOSKELETAL: Muscle strength and tone normal. SPINE: No scoliosis or deformity SKIN: No rashes CENTRAL NERVOUS SYSTEM: Alert and oriented -3. No focal deficits, tone is normal in all 4 extremities. PSYCHIATRIC: Alert and oriented -3. Appropriate affect. Intact judgment and insight. - Labs CBC & Chem 7: 05/22/21 06:57 05/22/21 06:57 Labs: Abnormal Lab Results - Last 24 Hours (Table) 05/22/21 05/22/21 Range/Units 06:57 06:57 Hgb 12.8 L (13.0-17.5) gm/dL Glucose 107 H (74-99) mg/dL Calcium 8.2 L (8.4-10.2) mg/dL Microbiology - Last 24 Hours (Table) 05/20/21 00:34 Blood Culture - Preliminary Blood No Growth after 48 hours 05/20/21 00:15 Blood Culture - Preliminary Blood No Growth after 48 hours 05/20/21 12:25 Acid Fast Bacilli Smear - Final Pleural Fluid Acid Fast Bacilli Culture - Preliminary Assessment and Plan Plan: Assessment: 1 Right lung abscess involving the posterior/superior segment of the right lower lobe. This is a fairly large abscess reaching the pleural surface with adjacent atelectasis and some limited consolidation. S/P right sided pig tail chest tube placement with removal of a 20 cc of purulent initially, and subsequently there was an additional 640 mL of purulent drainage in the Pleur-evac, awaiting final cultures, so far Gram stain showing no organisms, currently medical ridges with Zosyn and vancomycin. Patient is status post alteplase installation on 05/21/2021 and again today on 05/22/2021 2 right lower lobe pneumonia, March 2021 3 dyspnea and cough secondary to above 4 leukocytosis 5 smoker 6 chronic possibly infected tooth Plan: Continue current antibiotic coverage Pleural fluid cultures remain negative thus far Vital signs are stable, no fever or chills Patient received another dose of alteplase Follow-up chest x-ray tomorrow Consult Dr. Pittman for evaluation of the cracked and possibly infected tooth We'll continue to follow Time with Patient: Less than 30
--- NOTE | 2021-05-22 22:16 | P.PN ---
Subjective This is a pleasant 51 years old male with no significant past medical history. Patient states that last late March he was an [facility] for pneumonia where he was treated with antibiotics and steroids, patient felt better and he couldn't lie down and then he was discharged home however over the last week and a half he started to develop coughing and headache when he is lying down with only mild dyspnea, no significant dyspnea. No chest pain. No fever. No chest in urine or bowel habits. Patient went back to the hospital again on CAT scan of the chest showed large right lower lobe fluid collection: Consistent with an abscess and adjacent atelectasis. Patient also is a smoker who decided to quit yesterday, patient is counseled and he agrees with nicotine patch. Occasional alcohol and no illicit drugs Diabetic and leukocytosis of the 20.4. Rest of CBC, BMP and liver enzymes are unremarkable Chest x-ray showing small right effusion with known right lung abscess. New placement of a pigtail pleural catheter as the right base Vital showing tachycardia, rest of vital signs stable, patient is afebrile Patient is a started on IV vancomycin and Zosyn 05/21/2021 Patient is a breathing is much improved, he is minimally dyspneic. Vital signs stable and he is afebrile High WBC significantly improved down to 13 Chest x-ray showing significant improvement in his lung abscess He still has pigtail in his right lower lung placed by interventional radiologist, cardiothoracic surgery team were consulted today for of the base and normal saline infusion into the abscess He remains on broad-spectrum antibiotics with Zosyn and IV vancomycin and no muscle and aunt 100 mL per hour 05/22/2021 Patient breathing is quiet and stable hemodynamically stable Still has right lower chest pigtail posteriorly to drain his lung abscess and empyema, had another round of TPA injection by cardiothoracic surgery team today and this had still draining Body fluid culture came back positive for alpha hemolytic streptococcus I still covered with Zosyn and IV vancomycin with normal saline at 75 mL per hour Objective - Vital Signs Vital signs: Vital Signs Temp 98.1 F 05/22/21 08:00 Pulse 79 05/22/21 08:00 Resp 16 05/22/21 08:00 BP 152/96 05/22/21 08:00 Pulse Ox 97 05/22/21 08:00 Intake & Output 05/21/21 05/22/21 05/22/21 18:59 06:59 18:59 Intake Total 236 Balance 236 Intake: Oral 236 Other: # Voids 2 2 - Exam GENERAL: The patient is alert and oriented x3, not in any acute distress. Well developed, well nourished. HEENT: Pupils are round and equally reacting to light. EOMI. No scleral icterus. No conjunctival pallor. Normocephalic, atraumatic. No pharyngeal erythema. No thyromegaly. CARDIOVASCULAR: S1 and S2 present. No murmurs, rubs, or gallops. -PULMONARY: Chest is clear to auscultation, no wheezing or crackles. Right lower back just to tube ABDOMEN: Soft, nontender, nondistended, normoactive bowel sounds. No palpable organomegaly. MUSCULOSKELETAL: No joint swelling or deformity. EXTREMITIES: No cyanosis, clubbing, or pedal edema. NEUROLOGICAL: Gross neurological examination did not reveal any focal deficits. SKIN: No rashes. No petechiae - Labs CBC & Chem 7: 05/22/21 06:57 05/22/21 06:57 Labs: Abnormal Lab Results - Last 24 Hours (Table) 05/22/21 05/22/21 Range/Units 06:57 06:57 Hgb 12.8 L (13.0-17.5) gm/dL Glucose 107 H (74-99) mg/dL Calcium 8.2 L (8.4-10.2) mg/dL Microbiology - Last 24 Hours (Table) 05/20/21 00:34 Blood Culture - Preliminary Blood No Growth after 48 hours 05/20/21 00:15 Blood Culture - Preliminary Blood No Growth after 48 hours 05/20/21 12:25 Acid Fast Bacilli Smear - Final Pleural Fluid Acid Fast Bacilli Culture - Preliminary Assessment and Plan Assessment: Right lung abscess related to recent diagnosis of pneumonia about a month ago, status post a post pigtail and TPA injection 2. Culture is growing alpha hemolytic streptococcus Sepsis with leukocytosis and tachycardia secondary to above Nicotine dependence Plan: This is a pleasant 51 years old male who presents with right lung abscess. Continue with antibiotics, currently is on IV vancomycin and Zosyn. Continue with IV fluid currently is on normal saline at 100 mL per hour Pulmonary consult Cardiothoracic surgery consult for alteplase normal S1 effusion Continue with right chest pigtail Labs and medication were reviewed.. Continue same treatment. Continue with symptomatic treatment. Resume home medication. Monitor lytes and vitals. DVT and GI prophylaxis. Further recommendations depends on the clinical course of the patient DVT prophylaxis: Subcutaneous heparin GI Prophylaxis: Pepcid
[2021-05-23] MEDS: PIPERACILLIN-TAZOBACTAM 3.375 GM in SODIUM CHLORIDE 0.9% 100 ML IVPB SCH ×4 (00:21→23:13)
[2021-05-23] MEDS: MORPHINE SULFATE 4 MG/ML SYRINGE IV PRN ×2 (02:27→17:18)
[2021-05-23] MEDS: VANCOMYCIN 1,500 MG in SODIUM CHLORIDE 0.9% 250 ML IVPB SCH (04:23)
[2021-05-23] MEDS: SODIUM CHLORIDE 0.9% 1,000 ML IV SCH ×2 (07:31→18:23)
[2021-05-23] MEDS: PANTOPRAZOLE 40 MG/10 ML VIAL IV SCH (07:31)
[2021-05-23] MEDS: NICOTINE 21MG/24HR PATCH TRANSDERM SCH (07:31)
[2021-05-23] MEDS: FAMOTIDINE 20 MG/2 ML VIAL IV SCH ×2 (07:31→21:52)
[2021-05-23] MEDS: HEPARIN SODIUM,PORCINE/PF 5,000 UNIT/0.5 ML SYRINGE SQ SCH ×3 (07:31→21:52)
--- NOTE | 2021-05-23 07:45 | XR ---
EXAMINATION TYPE: XR chest 1V portable DATE OF EXAM: 05/23/2021 COMPARISON: Chest x-ray 05/22/2021 HISTORY: Empyema, lung abscess TECHNIQUE: Single frontal view of the chest is obtained. FINDINGS: Findings are similar to prior exam with perhaps some slight improvement in the thickening at the right costophrenic angle. No evident pneumothorax. IMPRESSION: Findings consistent with patient's history of empyema and lung abscess with indwelling d rainage catheter.
[2021-05-23] MEDS ORDERED: ALTEPLASE 10 MG in SODIUM CHLORIDE 0.9% 50 ML IRRIGATION ONE (09:56)
[2021-05-23] MEDS ORDERED: DORNASE ALFA 5 MG in SODIUM CHLORIDE 0.9% 50 ML IRRIGATION ONE (09:56)
--- NOTE | 2021-05-23 09:58 | P.PN ---
Subjective Progress Note Date: 05/23/21 Principal diagnosis: Right lung abscess, dyspnea, leukocytosis. Previous medical history of recent right lower lobe pneumonia March 2021, recent untreated abscessed tooth, chronic ongoing tobacco dependence, GERD POD #3 right-sided pigtail chest tube placement by interventional radiology The patient is currently sitting up in a recliner in the medical surgical unit in no acute distress. Denies pain or shortness of breath. States he has been ambulatory several times in the hallway without difficulty. Right-sided pigtail catheter placed with instillation of alteplase/dornase x 2 and evacuation of thick yellow fluid. Remains on IV antibiotics. Await culture results, p reliminarily reporting alpha hemolytic strep. No other new concerns. Objective - Vital Signs Vital signs: Vital Signs Temp 97.6 F 05/23/21 08:08 Pulse 72 05/23/21 08:08 Resp 16 05/23/21 08:08 BP 143/87 05/23/21 08:08 Pulse Ox 97 05/23/21 08:08 Intake & Output 05/22/21 05/23/21 05/23/21 18:59 06:59 18:59 Intake Total 832 Output Total 0 Balance 832 0 Intake: Oral 832 Output: Drainage 0 Right Lateral Back 0 Other: # Voids 1 0 # Bowel Movements 0 - Exam CONSTITUTIONAL: Appears comfortable, cooperative, no acute distress RESPIRATORY: Lungs sounds diminished in the right base. Respirations even, nonlabored. Currently on room air with oxygen saturation 97%. Able to achieve 2250 mL on incentive spirometry. Strong productive cough. CARDIOVASCULAR: S1, S2 present. Regular rate and rhythm. Palpable peripheral pulses bilaterally. No edema present. No calf pain or tenderness noted. GASTROINTESTINAL: Abdomen soft, nontender, nondistended. Active bowel sounds present 4 quadrants. Tolerating diet. GENITOURINARY: Continues to void clear, yellow urine INTEGUMENTARY: Skin is warm and dry with evidence of good perfusion. NEUROLOGIC: Cranial nerves II through XII intact MUSKULOSKELETAL: Able to move all extremities, strength equal bilaterally, gait normal PSYCHIATRIC: Alert and oriented to person place and time, appropriate affect, intact judgment and insight INVASIVE LINES AND TUBES: Right pigtail catheter present and connected to wall suction, no air leaks present, 50 mL thick yellow fluid since lytic instillation yesterday. - Allied health notes Allied health notes reviewed: nursing - Labs CBC & Chem 7: 05/22/21 07:00 05/22/21 06:57 Labs: Abnormal Lab Results - Last 24 Hours (Table) 05/22/21 Range/Units 07:00 Hgb 12.8 L (13.0-17.5) gm/dL Microbiology - Last 24 Hours (Table) 05/20/21 00:34 Blood Culture - Preliminary Blood No Growth after 72 hours 05/20/21 00:15 Blood Culture - Preliminary Blood No Growth after 72 hours 05/20/21 12:25 Anaerobic Culture - Preliminary Pleural Fluid 05/20/21 12:25 Gram Stain - Preliminary Pleural Fluid Body Fluid Culture - Preliminary Alpha Hemolytic Streptococcus - Imaging and Cardiology Chest x-ray: report reviewed, image reviewed Assessment and Plan Assessment: 1. Right lung abscess, status post right-sided pigtail chest tube placement by interventional radiology with instillation of lytic therapy 2. Recent right lower lobe pneumonia March 2021 3. Dyspnea secondary to above 4. Leukocytosis, secondary to above 5. Recent abscessed tooth, untreated 6. Chronic ongoing tobacco dependence Plan: 1. Will instill lytic therapy again today through his pigtail catheter and allowed to dwell for approximately 1 hour. 2. No plans for surgical intervention at this time, although surgery was discussed with the patient should current treatment fail 3. Antibiotic management per pulmonology 4. Patient was counseled regarding cessation of smoking 5. Will monitor daily x-rays 6. Medical management of other comorbidities per primary care service 7. More recommendations to follow Time with Patient: Greater than 30
[2021-05-23] MEDS ORDERED: VANCOMYCIN TROUGH DUE 1 EACH MISC MISCELLANE ONE (11:00)
[2021-05-23 11:01] LABS: Basophils # (A) 0.1 k/uL (0-0.2); Basophils % (A) 1 %; Eosinophils # (A) 0.2 k/uL (0-0.7); Eosinophils % (A) 2 %; HCT 46.6 % (39.0-53.0); Hypochromasia Slight; Lymphocytes % (A) 21 %; MCH 28.9 pg (25.0-35.0); MCHC 32.2 g/dL (31.0-37.0); MCV 89.8 fL (80.0-100.0); Mean Platelet Volume 7.6; Monocytes # (A) 0.4 k/uL (0-1.0); Monocytes % (A) 4 %; Neutrophils # (A) 6.7 k/uL (1.3-7.7); Neutrophils % (A) 70 %; Platelet Count 556 k/uL (150-450); RBC 5.19 m/uL (4.30-5.90); WBC 9.6 k/uL (3.8-10.6)
[2021-05-23 11:09] LABS: ALT 74 U/L (4-49); African American GFR (CKD) >90 (>60 ml/min/1.73 sqM); Albumin 3.4 g/dL (3.5-5.0); Albumin/Globulin Ratio 0.9; Anion Gap 12 mmol/L; Blood Urea Nitrogen 7 mg/dL (9-20); Calcium 8.7 mg/dL (8.4-10.2); Carbon Dioxide 21 mmol/L (22-30); Chloride 109 mmol/L (98-107); Globulin 3.7 g/dL; Glucose 111 mg/dL (74-99); Non-African American GFR(CKD) >90 (>60 ml/min/1.73 sqM); Sodium 142 mmol/L (137-145); Total Bilirubin 0.4 mg/dL (0.2-1.3); Total Protein 7.1 g/dL (6.3-8.2)
[2021-05-23 11:50] LABS: AST 58 U/L (17-59); Alkaline Phosphatase 134 U/L (38-126); Potassium 4.2 mmol/L (3.5-5.1)
--- NOTE | 2021-05-23 13:14 | CT ---
EXAMINATION TYPE: CT chest wo con DATE OF EXAM: 05/23/2021 COMPARISON: CT chest dated 05/19/2021 HISTORY: Right lung abscess CT DLP: 410.5 mGycm. Automated Exposure Control for Dose Reduction was Utilized. TECHNIQUE: CT scan of the thorax is performed without IV contrast. FINDINGS: Lack of contrast could compromise sensitivity. LUNGS: The previously identified right lung abscess has decreased in size, posterior right pigtail ca theter is again noted, there is some local air bronchograms, soft tissue as well as a small pleural e ffusion. No evident pneumothorax. Left lung is spared. No endobronchial lesion evident. MEDIASTINUM: Lack of IV contrast is noted to limit evaluation for mediastinal and especially hilar ad enopathy. There are no definitive greater than 1 cm hilar or mediastinal lymph nodes. No cardiomega ly or pericardial effusion is seen. OTHER: No additional significant abnormality is seen. IMPRESSION: Interval improvement in patient's lung abscess. Persistent changes or pneumonia, parapneu uzair effusion, difficult to exclude minimal empyema. Noncontrast exam.
--- NOTE | 2021-05-23 13:28 | P.PN ---
Subjective Progress Note Date: 05/23/21 Principal diagnosis: Right lung empyema Healthy 51-year-old male patient coming in for increased shortness of breath. The patient developed a pneumonia approximately March 2021. At that time the diagnosis was made in the emergency department at [facility]. He had a right lower lobe pneumonia. He was experiencing some pleuritic right-sided chest pain. He was given a combination of Augmentin and Diflucan he was discharged home. He was not hospitalized. The patient felt better, however he did not normalize completely. The pain is subsided. He continued to have some cough and shortness of breath and for that reason he went back to the emergency department and the patient had a CAT scan of the chest that showed a large right lower lobe posterior segment and severe segment fluid collection consistent with an abscess with adjacent atelectasis. His current white cell count is 20. He is on room air oxygen. No fever. No chills. No night sweats. Appetite is good. Renal function stable. Electrodes are within normal limits. No history of COPD. Is a smoker. No nausea. No vomiting. No diarrhea. No other complaints. No recurrent bouts of pneumonias. No active any malignancy. On today's evaluation on 05/21/2021 patient seen in follow-up on medical surgical floor. Yesterday a pigtail chest tube was put in in the right posterior chest, with initial drainage of 20 mL of purulent material, Pleuravac was connected, an additional 640 mL of purulent material was drained. On today's evaluation patient is on 3 L of oxygen his pulse ox is 92%, he states he breathing much more comfortably, some pressure in his right chest process, however it has improved since admission, he is on Zosyn and vancomycin for antibiotic coverage, no fever or chills overnight, his white blood cell count is improving on today's labs, follow-up chest x-ray is pending for today. On 05/22/2021 patient seen in follow-up on medical surgical floor, he is on room air, pulse ox is 97-99%, his been afebrile. Blood pressure is been stable, his right-sided pigtail chest tube remains in place, yesterday he received a dose of TPA instilled in his chest tube was in additional drainage of thick yellow fluid. So far all pleural fluid cultures have been negative. he remains on IV antibiotics. 's been tolerating ambulation. Chest x-ray shows pleural parenchymal changes of the right lung base that are stable in appearance. Today's labs have been reviewed, his white blood cell count is 10.5, hemoglobin is 12.8, electrolytes and renal profile are within normal limits. The patient is seen today 05/23/2021 and follow-up on the regular medical floor. He is awake and alert in no acute distress. He is now ambulating in the hallway. No worsening shortness of breath, cough or congestion. Maintaining good O2 saturations in the mid 90s on room air. He's been afebrile. Hemodynamically stable. His right-sided pigtail catheter appeared blocked today when up to place was attempted to be infused. Pleural fluid culture positive for alpha hemolytic streptococcus. White count 9.6. Hemoglobin 15.0. Sodium 142. Potassium 4.2. Creatinine 0.73. Vancomycin trough 21.2. He remains on vancomycin, Zosyn. Follow-up computed tomography scan of the chest reveals interval improvement in the patient's lung abscess. Persistent changes or pneumonia parapneumonic effusion difficult to exclude minimal empyema. Objective - Vital Signs Vital signs: Vital Signs Temp 97.6 F 05/23/21 08:08 Pulse 72 05/23/21 08:08 Resp 16 05/23/21 08:08 BP 143/87 05/23/21 08:08 Pulse Ox 97 05/23/21 08:08 Intake & Output 05/22/21 05/23/21 05/23/21 18:59 06:59 18:59 Intake Total 832 236 Output Total 0 Balance 832 0 236 Intake: Oral 832 236 Output: Drainage 0 Right Lateral Back 0 Other: # Voids 1 0 # Bowel Movements 0 - Exam GENERAL EXAM: Alert, active, very pleasant 51-year-old gentleman, on room air, comfortable in no apparent distress. HEAD: Normocephalic. EYES: Normal reaction of pupils, equal size. NOSE: Clear with pink turbinates. THROAT: No erythema or exudates. NECK: No masses, no JVD. CHEST: Right-sided pigtail catheter in place LUNGS: Equal air entry with echoes in the right base CVS: S1 and S2 normal with no audible murmur, regular rhythm. ABDOMEN: No hepatosplenomegaly, normal bowel sounds, no guarding or rigidity. SPINE: No scoliosis or deformity SKIN: No rashes CENTRAL NERVOUS SYSTEM: No focal deficits, tone is normal in all 4 extremities. EXTREMITIES: There is no peripheral edema. No clubbing, no cyanosis. Peripheral pulses are intact. - Labs CBC & Chem 7: 05/23/21 10:39 05/23/21 10:39 Labs: Abnormal Lab Results - Last 24 Hours (Table) 05/22/21 05/23/21 05/23/21 Range/Units 07:00 10:39 10:39 Hgb 12.8 L (13.0-17.5) gm/dL Plt Count 556 H (150-450) k/uL Chloride 109 H (98-107) mmol/L Carbon Dioxide 21 L (22-30) mmol/L BUN 7 L (9-20) mg/dL Glucose 111 H (74-99) mg/dL ALT 74 H (4-49) U/L Alkaline Phosphatase 134 H (38-126) U/L Albumin 3.4 L (3.5-5.0) g/dL Microbiology - Last 24 Hours (Table) 05/20/21 00:34 Blood Culture - Preliminary Blood No Growth after 72 hours 05/20/21 00:15 Blood Culture - Preliminary Blood No Growth after 72 hours 05/20/21 12:25 Anaerobic Culture - Preliminary Pleural Fluid 05/20/21 12:25 Gram Stain - Preliminary Pleural Fluid Body Fluid Culture - Preliminary Alpha Hemolytic Streptococcus Assessment and Plan Assessment: 1 Right lung abscess involving the posterior/superior segment of the right lower lobe. This is a fairly large abscess reaching the pleural surface with adjacent atelectasis and some limited consolidation. S/P right sided pig tail chest tube placement culture positive for alpha hemolytic Streptococcus. Patient is status post alteplase installation on 05/21/2021 and again on 05/22/2021. Unable to infuse alteplase on 05/23/2021 as his tube appears blocked. Follow-up computed tomography scan of the chest reveals interval improvement in the patient's lung abscess. There are some persistent changes in the right lung base. 2 right lower lobe pneumonia, March 2021 3 dyspnea and cough secondary to above 4 leukocytosis 5 smoker 6 chronic possibly infected tooth Plan: The patient was seen and evaluated by Dr. Fuentes Follow-up CAT scan reviewed Pigtail catheter appears obstructed Plan is to remove the catheter Pleural fluid culture positive for alpha hemolytic streptococcus Discontinue vancomycin Continue Zosyn for now Probable ceftriaxone daily IV upon discharge We will continue to follow I, the cosigning physician, performed a history & physical examination of the patient. Lungs sounds with crackles in the right lung base. Maintaining good O2 saturations in the 90s on room air. I discussed the assessment and plan of care with my nurse practitioner, Teressa Salter. I attest to the above note as dictated by her.
--- NOTE | 2021-05-23 16:36 | P.PN ---
Subjective This is a pleasant 51 years old male with no significant past medical history. Patient states that last late March he was an [facility] for pneumonia where he was treated with antibiotics and steroids, patient felt better and he couldn't lie down and then he was discharged home however over the last week and a half he started to develop coughing and headache when he is lying down with only mild dyspnea, no significant dyspnea. No chest pain. No fever. No chest in urine or bowel habits. Patient went back to the hospital again on CAT scan of the chest showed large right lower lobe fluid collection: Consistent with an abscess and adjacent atelectasis. Patient also is a smoker who decided to quit yesterday, patient is counseled and he agrees with nicotine patch. Occasional alcohol and no illicit drugs Diabetic and leukocytosis of the 20.4. Rest of CBC, BMP and liver enzymes are unremarkable Chest x-ray showing small right effusion with known right lung abscess. New placement of a pigtail pleural catheter as the right base Vital showing tachycardia, rest of vital signs stable, patient is afebrile Patient is a started on IV vancomycin and Zosyn 05/21/2021 Patient is a breathing is much improved, he is minimally dyspneic. Vital signs stable and he is afebrile High WBC significantly improved down to 13 Chest x-ray showing significant improvement in his lung abscess He still has pigtail in his right lower lung placed by interventional radiologist, cardiothoracic surgery team were consulted today for of the base and normal saline infusion into the abscess He remains on broad-spectrum antibiotics with Zosyn and IV vancomycin and no muscle and aunt 100 mL per hour 05/22/2021 Patient breathing is quiet and stable hemodynamically stable Still has right lower chest pigtail posteriorly to drain his lung abscess and empyema, had another round of TPA injection by cardiothoracic surgery team today and this had still draining Body fluid culture came back positive for alpha hemolytic streptococcus I still covered with Zosyn and IV vancomycin with normal saline at 75 mL per hour 05/23/2021 Patient's symptoms improving, his almost asymptomatic with no significant dyspnea. Saturating well on Coumadin air. His leukocytosis is back to normal at 9.6. CT of the chest showing improvement abscess, still have some pneumonia and parapneumonic effusion possible minimal empyema. He received another dose of his PEG tube which was planned to be removed by surgery team As one blood culture is growing out for about streptococcus. Mycin was stopped and continued on Zosyn Possible IV antibiotics upon discharge Objective - Vital Signs Vital signs: Vital Signs Temp 97.6 F 05/23/21 08:08 Pulse 72 05/23/21 08:08 Resp 16 05/23/21 08:08 BP 143/87 05/23/21 08:08 Pulse Ox 97 05/23/21 08:08 Intake & Output 05/22/21 05/23/21 05/23/21 18:59 06:59 18:59 Intake Total 832 236 Output Total 0 Balance 832 0 236 Intake: Oral 832 236 Output: Drainage 0 Right Lateral Back 0 Other: # Voids 1 0 # Bowel Movements 0 - Exam GENERAL: The patient is alert and oriented x3, not in any acute distress. Well developed, well nourished. HEENT: Pupils are round and equally reacting to light. EOMI. No scleral icterus. No conjunctival pallor. Normocephalic, atraumatic. No pharyngeal erythema. No thyromegaly. CARDIOVASCULAR: S1 and S2 present. No murmurs, rubs, or gallops. -PULMONARY: Chest is clear to auscultation, no wheezing or crackles. Right lower back just to tube ABDOMEN: Soft, nontender, nondistended, normoactive bowel sounds. No palpable organomegaly. MUSCULOSKELETAL: No joint swelling or deformity. EXTREMITIES: No cyanosis, clubbing, or pedal edema. NEUROLOGICAL: Gross neurological examination did not reveal any focal deficits. SKIN: No rashes. No petechiae - Labs CBC & Chem 7: 05/23/21 10:39 05/23/21 10:39 Labs: Abnormal Lab Results - Last 24 Hours (Table) 05/22/21 05/23/21 05/23/21 Range/Units 07:00 10:39 10:39 Hgb 12.8 L (13.0-17.5) gm/dL Plt Count 556 H (150-450) k/uL Chloride 109 H (98-107) mmol/L Carbon Dioxide 21 L (22-30) mmol/L BUN 7 L (9-20) mg/dL Glucose 111 H (74-99) mg/dL ALT 74 H (4-49) U/L Alkaline Phosphatase 134 H (38-126) U/L Albumin 3.4 L (3.5-5.0) g/dL Microbiology - Last 24 Hours (Table) 05/20/21 00:34 Blood Culture - Preliminary Blood No Growth after 72 hours 05/20/21 00:15 Blood Culture - Preliminary Blood No Growth after 72 hours 05/20/21 12:25 Anaerobic Culture - Preliminary Pleural Fluid 05/20/21 12:25 Gram Stain - Preliminary Pleural Fluid Body Fluid Culture - Preliminary Alpha Hemolytic Streptococcus Assessment and Plan Assessment: Right lung abscess related to recent diagnosis of pneumonia about a month ago, status post a post pigtail and TPA injection 2. Culture is growing alpha hemolytic streptococcus Sepsis with leukocytosis and tachycardia secondary to above Nicotine dependence Plan: This is a pleasant 51 years old male who presents with right lung abscess. Continue with antibiotics, currently is on IV Zosyn. Discontinue IV vancomycin Continue with IV fluid currently is on normal saline at 75 mL per hour Pulmonary consult Cardiothoracic surgery consult for alteplase effusion. With the plan to remove the pigtail tube Patient will probably need IV antibiotics upon discharge Labs and medication were reviewed.. Continue same treatment. Continue with symptomatic treatment. Resume home medication. Monitor lytes and vitals. DVT and GI prophylaxis. Further recommendations depends on the clinical course of the patient DVT prophylaxis: Subcutaneous heparin GI Prophylaxis: Pepcid
--- NOTE | 2021-05-23 17:16 | P.GSCN ---
History of Present Illness Consult date: 05/23/21 Reason for Consult: Pt presented with a lower left molar, broken in half, missing the one half. Pt stated he had a previous abscess but is no longer symptomatic. Tooth needs to be extracted at his dentist office. #18 Patient is completely asymptomatic, no swelling, no pain to percussion. Tooth is not acutely infected. Recommended to patient to see his current dentist to get it extracted once stable medically. Thank you for your kind referral Past Medical History Past Medical History: GERD/Reflux, Pneumonia Additional Past Medical History / Comment(s): Seasonal ALLERGIES History of Any Multi-Drug Resistant Organisms: None Reported Past Surgical History: No Surgical Hx Reported Past Anesthesia/Blood Transfusion Reactions: No Reported Reaction Past Psychological History: No Psychological Hx Reported Smoking Status: Current every day smoker Past Alcohol Use History: Occasional Past Drug Use History: None Reported - Past Family History Mother Family Medical History: No Reported History Father Additional Family Medical History / Comment(s): History of mesothelioma Medications and Allergies Home Medications Medication Instructions Recorded Confirmed Type Esomeprazole Magnesium [NexIUM 20 mg PO DAILY 05/19/21 05/19/21 History 24Hr] Fexofenadine HCl [Aubrie Allergy] 180 mg PO DAILY 05/19/21 05/19/21 History Allergies Allergy/AdvReac Type Severity Reaction Status Date / Time No Known Allergies Allergy Verified 05/19/21 23:43 Surgical - Exam Vital Signs Temp Pulse Resp BP Pulse Ox 99.5 F 101 H 18 150/76 98 05/19/21 23:16 05/19/21 23:16 05/19/21 23:16 05/19/21 23:16 05/19/21 23:16 Results - Labs 05/23/21 10:39 05/23/21 10:39 Abnormal Lab Results - Last 24 Hours (Table) 05/22/21 05/23/21 05/23/21 Range/Units 07:00 10:39 10:39 Hgb 12.8 L (13.0-17.5) gm/dL Plt Count 556 H (150-450) k/uL Chloride 109 H (98-107) mmol/L Carbon Dioxide 21 L (22-30) mmol/L BUN 7 L (9-20) mg/dL Glucose 111 H (74-99) mg/dL ALT 74 H (4-49) U/L Alkaline Phosphatase 134 H (38-126) U/L Albumin 3.4 L (3.5-5.0) g/dL Microbiology - Last 24 Hours (Table) 05/20/21 00:34 Blood Culture - Preliminary Blood No Growth after 72 hours 05/20/21 00:15 Blood Culture - Preliminary Blood No Growth after 72 hours 05/20/21 12:25 Anaerobic Culture - Preliminary Pleural Fluid 05/20/21 12:25 Gram Stain - Preliminary Pleural Fluid Body Fluid Culture - Preliminary Alpha Hemolytic Streptococcus Diabetes panel 05/23/21 Range/Units 10:39 Sodium 142 (137-145) mmol/L Potassium 4.2 (3.5-5.1) mmol/L Chloride 109 H (98-107) mmol/L Carbon Dioxide 21 L (22-30) mmol/L BUN 7 L (9-20) mg/dL Creatinine 0.73 (0.66-1.25) mg/dL Glucose 111 H (74-99) mg/dL Calcium 8.7 (8.4-10.2) mg/dL AST 58 (17-59) U/L ALT 74 H (4-49) U/L Alkaline Phosphatase 134 H (38-126) U/L Total Protein 7.1 (6.3-8.2) g/dL Albumin 3.4 L (3.5-5.0) g/dL Calcium panel 05/23/21 Range/Units 10:39 Calcium 8.7 (8.4-10.2) mg/dL Albumin 3.4 L (3.5-5.0) g/dL Pituitary panel 05/23/21 Range/Units 10:39 Sodium 142 (137-145) mmol/L Potassium 4.2 (3.5-5.1) mmol/L Chloride 109 H (98-107) mmol/L Carbon Dioxide 21 L (22-30) mmol/L BUN 7 L (9-20) mg/dL Creatinine 0.73 (0.66-1.25) mg/dL Glucose 111 H (74-99) mg/dL Calcium 8.7 (8.4-10.2) mg/dL Adrenal panel 05/23/21 Range/Units 10:39 Sodium 142 (137-145) mmol/L Potassium 4.2 (3.5-5.1) mmol/L Chloride 109 H (98-107) mmol/L Carbon Dioxide 21 L (22-30) mmol/L BUN 7 L (9-20) mg/dL Creatinine 0.73 (0.66-1.25) mg/dL Glucose 111 H (74-99) mg/dL Calcium 8.7 (8.4-10.2) mg/dL Total Bilirubin 0.4 (0.2-1.3) mg/dL AST 58 (17-59) U/L ALT 74 H (4-49) U/L Alkaline Phosphatase 134 H (38-126) U/L Total Protein 7.1 (6.3-8.2) g/dL Albumin 3.4 L (3.5-5.0) g/dL
[2021-05-24] MEDS: SODIUM CHLORIDE 0.9% 1,000 ML IV SCH ×2 (06:56→14:40)
[2021-05-24] MEDS: PANTOPRAZOLE 40 MG/10 ML VIAL IV SCH (07:28)
[2021-05-24] MEDS: HEPARIN SODIUM,PORCINE/PF 5,000 UNIT/0.5 ML SYRINGE SQ SCH ×2 (07:28→21:20)
[2021-05-24] MEDS: FAMOTIDINE 20 MG/2 ML VIAL IV SCH ×2 (07:28→21:18)
--- NOTE | 2021-05-24 07:28 | XR ---
EXAMINATION TYPE: XR chest 1V portable DATE OF EXAM: 05/24/2021 COMPARISON: Chest x-ray 05/23/2021 HISTORY: Empyema, lung abscess TECHNIQUE: Single frontal view of the chest is obtained. FINDINGS: Findings are similar to prior exam. No evident pneumothorax. IMPRESSION: Pigtail catheter is again noted at the right lung base, there is some associated pleural thickening, patchy basilar density consistent with patient's history of lung abscess and associated effusion versus empyema
[2021-05-24] MEDS: NICOTINE 21MG/24HR PATCH TRANSDERM SCH (07:29)
[2021-05-24] MEDS: PIPERACILLIN-TAZOBACTAM 3.375 GM in SODIUM CHLORIDE 0.9% 100 ML IVPB SCH ×2 (07:29→16:49)
--- NOTE | 2021-05-24 09:44 | P.PN ---
Subjective Progress Note Date: 05/24/21 Principal diagnosis: Right lung abscess, dyspnea, leukocytosis. Previous medical history of recent right lower lobe pneumonia March 2021, recent untreated abscessed tooth, chronic ongoing tobacco dependence, GERD POD #4 right-sided pigtail chest tube placement by interventional radiology The patient is currently ambulating in his room in the medical surgical unit in no acute distress. Denies pain or shortness of breath. Right-sided pigtail catheter hasn't, attempted lytic insufflation again yesterday without any success. Repeat computed tomography scan was completed with noted improvement. Remains on IV antibiotics. Pleural fluid culture reporting alpha hemolytic s trep, remains on IV Zosyn. No other new concerns. Objective - Vital Signs Vital signs: Vital Signs Temp 97.7 F 05/24/21 08:24 Pulse 73 05/24/21 08:24 Resp 16 05/24/21 08:24 BP 151/85 05/24/21 08:24 Pulse Ox 98 05/24/21 08:35 Intake & Output 05/23/21 05/24/21 05/24/21 18:59 06:59 18:59 Intake Total 708 Balance 708 Intake: Oral 708 Other: # Voids 1 1 # Bowel Movements 0 - Exam CONSTITUTIONAL: Appears comfortable, cooperative, no acute distress RESPIRATORY: Lungs sounds diminished in the right base. Respirations even, nonlabored. Currently on room air with oxygen saturation 98%. Able to achieve 2250 mL on incentive spirometry. Strong productive cough. CARDIOVASCULAR: S1, S2 present. Regular rate and rhythm. Palpable peripheral pulses bilaterally. No edema present. No calf pain or tenderness noted. GASTROINTESTINAL: Abdomen soft, nontender, nondistended. Active bowel sounds present 4 quadrants. Tolerating diet. GENITOURINARY: Continues to void clear, yellow urine INTEGUMENTARY: Skin is warm and dry with evidence of good perfusion. NEUROLOGIC: Cranial nerves II through XII intact MUSKULOSKELETAL: Able to move all extremities, strength equal bilaterally, gait normal PSYCHIATRIC: Alert and oriented to person place and time, appropriate affect, intact judgment and insight INVASIVE LINES AND TUBES: Right pigtail catheter present and connected to wall suction, no air leaks present, no new drainage - Labs CBC & Chem 7: 05/23/21 10:39 05/23/21 10:39 Labs: Abnormal Lab Results - Last 24 Hours (Table) 05/23/21 05/23/21 Range/Units 10:39 10:39 Plt Count 556 H (150-450) k/uL Chloride 109 H (98-107) mmol/L Carbon Dioxide 21 L (22-30) mmol/L BUN 7 L (9-20) mg/dL Glucose 111 H (74-99) mg/dL ALT 74 H (4-49) U/L Alkaline Phosphatase 134 H (38-126) U/L Albumin 3.4 L (3.5-5.0) g/dL Microbiology - Last 24 Hours (Table) 05/20/21 00:34 Blood Culture - Preliminary Blood No Growth after 96 hours 05/20/21 00:15 Blood Culture - Preliminary Blood No Growth after 96 hours 05/20/21 12:25 Gram Stain - Final Pleural Fluid Body Fluid Culture - Final Alpha Hemolytic Streptococcus - Imaging and Cardiology Chest x-ray: report reviewed, image reviewed CT scan - chest: report reviewed, image reviewed Assessment and Plan Assessment: 1. Right lung abscess, status post right-sided pigtail chest tube placement by interventional radiology with instillation of lytic therapy 2. Recent right lower lobe pneumonia March 2021 3. Dyspnea secondary to above 4. Leukocytosis, secondary to above 5. Recent abscessed tooth, untreated 6. Chronic ongoing tobacco dependence Plan: 1. Pigtail catheter discontinued this morning, will recheck x-ray. If repeat chest x-ray is stable patient may be discharged to home from our standpoint when agreeable by other services 2. No plans for surgical intervention at this time, although surgery was discussed with the patient should current treatment fail 3. Antibiotic management per pulmonology 4. Patient was counseled regarding cessation of smoking 5. Medical management of other comorbidities per primary care service 6. More recommendations to follow Time with Patient: Greater than 30
[2021-05-24] MEDS: MORPHINE SULFATE 4 MG/ML SYRINGE IV PRN ×2 (10:57→21:18)
--- NOTE | 2021-05-24 11:08 | P.PN ---
Subjective Progress Note Date: 05/24/21 Healthy 51-year-old male patient coming in for increased shortness of breath. The patient developed a pneumonia approximately March 2021. At that time the diagnosis was made in the emergency department at [facility]. He had a right lower lobe pneumonia. He was experiencing some pleuritic right-sided chest pain. He was given a combination of Augmentin and Diflucan he was discharged home. He was not hospitalized. The patient felt better, however he did not normalize completely. The pain is subsided. He continued to have some cough and shortness of breath and for that reason he went back to the emergency department and the patient had a CAT scan of the chest that showed a large right lower lobe posterior segment and severe segment fluid collection consistent with an abscess with adjacent atelectasis. His current white cell count is 20. He is on room air oxygen. No fever. No chills. No night sweats. Appetite is good. Renal function stable. Electrodes are within normal limits. No history of COPD. Is a smoker. No nausea. No vomiting. No diarrhea. No other complaints. No recurrent bouts of pneumonias. No active any malignancy. On today's evaluation on 05/21/2021 patient seen in follow-up on medical surgical floor. Yesterday a pigtail chest tube was put in in the right posterior chest, with initial drainage of 20 mL of purulent material, Pleuravac was connected, an additional 640 mL of purulent material was drained. On today's evaluation patient is on 3 L of oxygen his pulse ox is 92%, he states he breathing much more comfortably, some pressure in his right chest process, however it has improved since admission, he is on Zosyn and vancomycin for antib iotic coverage, no fever or chills overnight, his white blood cell count is improving on today's labs, follow-up chest x-ray is pending for today. On 05/22/2021 patient seen in follow-up on medical surgical floor, he is on room air, pulse ox is 97-99%, his been afebrile. Blood pressure is been stable, his right-sided pigtail chest tube remains in place, yesterday he received a dose of TPA instilled in his chest tube was in additional drainage of thick yellow fluid. So far all pleural fluid cultures have been negative. he remains on IV antibiotics. 's been tolerating ambulation. Chest x-ray shows pleural parenchymal changes of the right lung base that are stable in appearance. Today's labs have been reviewed, his white blood cell count is 10.5, hemoglobin is 12.8, electrolytes and renal profile are within normal limits. The patient is seen today 05/23/2021 and follow-up on the regular medical floor. He is awake and alert in no acute distress. He is now ambulating in the hallway. No worsening shortness of breath, cough or congestion. Maintaining good O2 saturations in the mid 90s on room air. He's been afebrile. Hemodynamically stable. His right-sided pigtail catheter appeared blocked today when up to place was attempted to be infused. Pleural fluid culture positive for alpha hemolytic streptococcus. White count 9.6. Hemoglobin 15.0. Sodium 142. Potassium 4.2. Creatinine 0.73. Vancomycin trough 21.2. He remains on vancomycin, Zosyn. Follow-up computed tomography scan of the chest reveals interval improvement in the patient's lung abscess. Persistent changes or pneumonia parapneumonic effusion difficult to exclude minimal empyema. 05/24/2021, the patient is feeling extremely well. No new complaints. CAT scan of the chest was done yesterday. There was obviously my notion of the right lung abscess, probably much gone with some residual atelectatic changes and some pleural reaction and thickening. In any rate, the catheter itself was not drain ing and I decided to follow-up the catheter yesterday. I discussed this with the CT surgery and we decided on removing the catheter out. The patient is feeling well. He has no specific complaints. He remains on IV Zosyn. He has also hemolytic strep in his pleural fluid. I'm going to ask infectious disease to come and evaluate him and decide on the course of outpatient antibiotic treatment being either oral or IV. The treatment is going to prolonged probably in the order of 4-6 weeks. Clinically stable. May be able to go home once we decide on the course of antibiotics. Objective - Vital Signs Vital signs: Vital Signs Temp 97.7 F 05/24/21 08:24 Pulse 73 05/24/21 08:24 Resp 16 05/24/21 08:24 BP 151/85 05/24/21 08:24 Pulse Ox 98 05/24/21 08:35 Intake & Output 05/23/21 05/24/21 05/24/21 18:59 06:59 18:59 Intake Total 708 Balance 708 Intake: Oral 708 Other: # Voids 1 1 # Bowel Movements 0 - Exam GENERAL EXAM: Alert, active, very pleasant 51-year-old gentleman, on room air, comfortable in no apparent distress. HEAD: Normocephalic. EYES: Normal reaction of pupils, equal size. NOSE: Clear with pink turbinates. THROAT: No erythema or exudates. NECK: No masses, no JVD. CHEST: Right-sided pigtail catheter in place LUNGS: Equal air entry with echoes in the right base CVS: S1 and S2 normal with no audible murmur, regular rhythm. ABDOMEN: No hepatosplenomegaly, normal bowel sounds, no guarding or rigidity. SPINE: No scoliosis or deformity SKIN: No rashes CENTRAL NERVOUS SYSTEM: No focal deficits, tone is normal in all 4 extremities. EXTREMITIES: There is no peripheral edema. No clubbing, no cyanosis. Periph eral pulses are intact. - Labs CBC & Chem 7: 05/23/21 10:39 05/23/21 10:39 Labs: Abnormal Lab Results - Last 24 Hours (Table) 05/23/21 Range/Units 10:39 Chloride 109 H (98-107) mmol/L Carbon Dioxide 21 L (22-30) mmol/L BUN 7 L (9-20) mg/dL Glucose 111 H (74-99) mg/dL ALT 74 H (4-49) U/L Alkaline Phosphatase 134 H (38-126) U/L Albumin 3.4 L (3.5-5.0) g/dL Microbiology - Last 24 Hours (Table) 05/20/21 00:34 Blood Culture - Preliminary Blood No Growth after 96 hours 05/20/21 00:15 Blood Culture - Preliminary Blood No Growth after 96 hours 05/20/21 12:25 Gram Stain - Final Pleural Fluid Body Fluid Culture - Final Alpha Hemolytic Streptococcus Assessment and Plan Plan: 1 Right lung abscess involving the posterior/superior segment of the right lower lobe. This is a fairly large abscess reaching the pleural surface with adjacent atelectasis and some limited consolidation. S/P right sided pig tail chest tube placement culture positive for alpha hemolytic Streptococcus. Patient is status post alteplase installation on 05/21/2021 and again on 05/22/2021. Unable to infuse alteplase on 05/23/2021 as his tube appears blocked. Follow-up computed tomography scan of the chest reveals interval improvement in the patient's lung abscess. There are some persistent changes in the right lung base. Tube has been removed and the patient's follow-up CAT scan of the chest shows significant improvement with some residual atelectatic changes. No clear indication of any residual pus or abscess based on the CAT scan findings. The patient also underwent a dental evaluation. 2 right lower lobe pneumonia, March 2021 3 dyspnea and cough secondary to above, improved 4 leukocytosis, improved 5 smoker 6 chronic possibly infected tooth, dental evaluation was done. Plan: Follow-up CAT scan reviewed, marketed improvement Pigtail catheter appears obstructed Plan is to remove the catheter Pleural fluid culture positive for alpha hemolytic streptococcus Continue Zosyn for now Will ask ID to decide on the course of antibiotic treatment. He can either go home on IV Rocephin via PICC line versus oral antibiotic for the next 4-6 weeks. We will discharge the patient once the antibiotic choice has been made. We will continue to follow, he will need to follow up on outpatient basis regarding the right lung abscess.
--- NOTE | 2021-05-24 11:17 | P.PN ---
Subjective This is a pleasant 51 years old male with no significant past medical history. Patient states that last late March he was an [facility] for pneumonia where he was treated with antibiotics and steroids, patient felt better and he couldn't lie down and then he was discharged home however over the last week and a half he started to develop coughing and headache when he is lying down with only mild dyspnea, no significant dyspnea. No chest pain. No fever. No chest in urine or bowel habits. Patient went back to the hospital again on CAT scan of the chest showed large right lower lobe fluid collection: Consistent with an abscess and adjacent atelectasis. Patient also is a smoker who decided to quit yesterday, patient is counseled and he agrees with nicotine patch. Occasional alcohol and no illicit drugs Diabetic and leukocytosis of the 20.4. Rest of CBC, BMP and liver enzymes are unremarkable Chest x-ray showing small right effusion with known right lung abscess. New placement of a pigtail pleural catheter as the right base Vital showing tachycardia, rest of vital signs stable, patient is afebrile Patient is a started on IV vancomycin and Zosyn 05/21/2021 Patient is a breathing is much improved, he is minimally dyspneic. Vital signs stable and he is afebrile High WBC significantly improved down to 13 Chest x-ray showing significant improvement in his lung abscess He still has pigtail in his right lower lung placed by interventional radiologist, cardiothoracic surgery team were consulted today for of the base and normal saline infusion into the abscess He remains on broad-spectrum antibiotics with Zosyn and IV vancomycin and no muscle and aunt 100 mL per hour 05/22/2021 Patient breathing is quiet and stable hemodynamically stable Still has right lower chest pigtail posteriorly to drain his lung abscess and empyema, had another round of TPA injection by cardiothoracic surgery team today and this had still draining Body fluid culture came back positive for alpha hemolytic streptococcus I still covered with Zosyn and IV vancomycin with normal saline at 75 mL per hour 05/23/2021 Patient's symptoms improving, his almost asymptomatic with no significant dyspnea. Saturating well on Coumadin air. His leukocytosis is back to normal at 9.6. CT of the chest showing improvement abscess, still have some pneumonia and parapneumonic effusion possible minimal empyema. He received another dose of his PEG tube which was planned to be removed by surgery team As one blood culture is growing out for about streptococcus. Mycin was stopped and continued on Zosyn Possible IV antibiotics upon discharge 05/24/2021 Patient breathing status is stable. Still have right pigtail chest tube in his right lung, able to move around with no difficulty. Chest x-ray from today showing pigtail tube in the right lung base with pleural thickening and patchy basal density which is consistent with patient history of lung abscess and associated pleural effusion or empyema. However pigtail catheter is suspected to be obstructed and possibly could be removed by cardiothoracic surgery team Culture is growing alpha hemolytic streptococcus and he might benefit from prolonged IV antibiotics upon discharge Infectious disease team were consulted for this purpose Objective - Vital Signs Vital signs: Vital Signs Temp 97.7 F 05/24/21 08:24 Pulse 73 05/24/21 08:24 Resp 16 05/24/21 08:24 BP 151/85 05/24/21 08:24 Pulse Ox 98 05/24/21 08:35 Intake & Output 05/23/21 05/24/21 05/24/21 18:59 06:59 18:59 Intake Total 708 Balance 708 Intake: Oral 708 Other: # Voids 1 1 # Bowel Movements 0 - Exam GENERAL: The patient is alert and oriented x3, not in any acute distress. Well developed, well nourished. HEENT: Pupils are round and equally reacting to light. EOMI. No scleral icterus. No conjunctival pallor. Normocephalic, atraumatic. No pharyngeal erythema. No thyromegaly. CARDIOVASCULAR: S1 and S2 present. No murmurs, rubs, or gallops. -PULMONARY: Chest is clear to auscultation, no wheezing or crackles. Right lower back just to tube ABDOMEN: Soft, nontender, nondistended, normoactive bowel sounds. No palpable organomegaly. MUSCULOSKELETAL: No joint swelling or deformity. EXTREMITIES: No cyanosis, clubbing, or pedal edema. NEUROLOGICAL: Gross neurological examination did not reveal any focal deficits. SKIN: No rashes. No petechiae - Labs CBC & Chem 7: 05/23/21 10:39 05/23/21 10:39 Labs: Abnormal Lab Results - Last 24 Hours (Table) 05/23/21 Range/Units 10:39 Chloride 109 H (98-107) mmol/L Carbon Dioxide 21 L (22-30) mmol/L BUN 7 L (9-20) mg/dL Glucose 111 H (74-99) mg/dL ALT 74 H (4-49) U/L Alkaline Phosphatase 134 H (38-126) U/L Albumin 3.4 L (3.5-5.0) g/dL Microbiology - Last 24 Hours (Table) 05/20/21 00:34 Blood Culture - Preliminary Blood No Growth after 96 hours 05/20/21 00:15 Blood Culture - Preliminary Blood No Growth after 96 hours 05/20/21 12:25 Gram Stain - Final Pleural Fluid Body Fluid Culture - Final Alpha Hemolytic Streptococcus Assessment and Plan Assessment: Right lung abscess related to recent diagnosis of pneumonia about a month ago, status post a post pigtail and TPA injection 2. Culture is growing alpha hemolytic streptococcus Sepsis with leukocytosis and tachycardia secondary to above Nicotine dependence Plan: This is a pleasant 51 years old male who presents with right lung abscess. Continue with antibiotics, currently is on IV Zosyn. Continue with IV fluid currently is on normal saline at 75 mL per hour Pulmonary consult Infectious disease team, as patient may need prolonged antibiotics upon discharge Cardiothoracic surgery consult for alteplase effusion. With the plan to remove the pigtail tube Labs and medication were reviewed.. Continue same treatment. Continue with symptomatic treatment. Resume home medication. Monitor lytes and vitals. DVT and GI prophylaxis. Further recommendations depends on the clinical course of the patient DVT prophylaxis: Subcutaneous heparin GI Prophylaxis: Pepcid Patient informed with the plan and he agrees
[2021-05-24 12:42] LABS: Basophils # (A) 0.09 X 10*3/uL (0.00-0.10); Basophils % (A) 0.9 %; Eosinophils # (A) 0.25 X 10*3/uL (0.04-0.35); Eosinophils % (A) 2.4 %; HGB 13.6 g/dL (13.0-17.0); Lymphocytes # (A) 3.03 X 10*3/uL (0.90-5.00); Lymphocytes % (A) 29.1 %; MCH 27.6 pg (27.0-32.0); MCHC 31.6 g/dL (32.0-37.0); MCV 87.4 fL (80.0-97.0); Mean Platelet Volume 10.2 fL (9.5-12.2); Monocytes # (A) 0.77 X 10*3/uL (0.20-1.00); Monocytes % (A) 7.4 %; Neutrophils # (A) 6.21 X 10*3/uL (1.80-7.70); Neutrophils % (A) 59.7 %; Platelet Count 635 X 10*3/uL (140-440); RBC 4.92 X 10*6/uL (4.40-5.60); RDW 13.1 % (11.5-14.5)
--- NOTE | 2021-05-24 23:49 | P.CONS ---
History of Present Illness - Reason for Consult Consult date: 05/24/21 lung abscess , antibiotics Requesting physician: Claribel Fuentes - Chief Complaint right sided chest pain and cough x days - History of Present Illness History of present illness : Patient is 51-year male presented to hospital 5 days ago for evaluation of increasing shortness of breath and this patient started having symptoms of right sided chest pain shortness of breath around mid March for the patient was diagnosed with a right lower lobe pneumonia has been treated with a course of Augmentin however the patient started having recurrent symptoms and having increasing shortness of breath on minimal exertion patient also have right-sided chest pain more of a dull aching worse with taking a deep breath intensity 4 to 5-10 and no radiation for the patient went back to [facility] patient did have a CT of the chest which was large right lower lobe fluid collection consistent with an abscess and adjacent atelectasis his white count was 20 patient was subsequently transferred to [facility] for further management on arrival to the ER patient was afebrile and no fever has been recorded subsequently patient did have white count of 20,000 that has came down to 10,000 as of this morning patient pleural fluid was cloudy with 45,000 nucleated cells culture with alpha hemolytic Streptococcus for the patient has been treated with Zosyn infectious disease was consulted today for further management of antibiotic therapy the patient chest tube has been discontinued and the patient is breathing more comfortably CT of the chest done yesterday persistent changes of pneumonia/empyema Review of system: CONSTITUTIONAL: Positive for weakness denies high-grade fever. EYES: No complaint. ENT: No complaint. RESPIRATORY: As per history of present illness. CARDIOVASCULAR: No complaint. GENITOURINARY: No complaint. GASTROINTESTINAL: No complaint. MUSCULOSKELETAL: No complaint. INTEGUMENTARY: No complaint. PSYCHOLOGIC: No complaint. ENDOCRINE: No complaint. NEUROLOGIC: No complaint. Past medical history : Reviewed, documented below Past surgical history : Reviewed, documented below Social history: Reviewed, documented below Medications: Reviewed, as documented below GENERAL DESCRIPTION: Middle-aged male lying in bed, no distress. No tachypnea or accessory muscle of respiration use. HEENT: Shows Pallor , no scleral icterus. Oral mucous membrane is dry. NECK: Trachea central, no thyromegaly. LUNGS: Unlabored breathing. Decreased breath sound at the base. No wheeze or crackle. HEART: S1, S2, regular rate and rhythm. ABDOMEN: Soft, no tenderness , guarding or rigidity EXTREMITIES: No edema of feet. SKIN: No rash, no masses palpable. NEUROLOGICAL: The patient is awake, alert, oriented x3, mood and affect normal. LABS AND RADIOLOGY: Reviewed results see below Assessment : Patient presented to hospital with empyema in this patient who is status post chest tube placement which has been discontinued culture positive f or alphahemolytic Streptococcus, repeat CT completed yesterday did shows improvement but persistent features of pneumonia and empyema for the patient benefit for PICC line and outpatient IV biotic therapy Plan: 1-antibiotics were adjusted to Rocephin 2 g daily 2-PICC line and outpatient antibiotic arrangement We will follow on clinical condition and cultures to further adjust medication if needed Thank you for this consultation we will follow the patient along with you Past Medical History Past Medical History: GERD/Reflux, Pneumonia Additional Past Medical History / Comment(s): Seasonal ALLERGIES History of Any Multi-Drug Resistant Organisms: None Reported Past Surgical History: No Surgical Hx Reported Past Anesthesia/Blood Transfusion Reactions: No Reported Reaction Past Psychological History: No Psychological Hx Reported Smoking Status: Current every day smoker Past Alcohol Use History: Occasional Past Drug Use History: None Reported - Past Family History Mother Family Medical History: No Reported History Father Additional Family Medical History / Comment(s): History of mesothelioma Medications and Allergies Home Medications Medication Instructions Recorded Confirmed Type Esomeprazole Magnesium [NexIUM 20 mg PO DAILY 05/19/21 05/19/21 History 24Hr] Fexofenadine HCl [Aubrie Allergy] 180 mg PO DAILY 05/19/21 05/19/21 History Allergies Allergy/AdvReac Type Severity Reaction Status Date / Time No Known Allergies Allergy Verified 05/19/21 23:43 Physical Exam Vitals: Vital Signs Temp Pulse Resp BP Pulse Ox 05/24/21 08:35 98 05/24/21 08:24 97.7 F 73 16 151/85 97 05/24/21 01:41 143/87 05/24/21 01:08 97.3 F L 73 15 162/98 97 05/23/21 20:00 14 05/23/21 19:38 97.8 F 78 14 161/96 98 Intake and Output 08/28/21 08/29/21 08/29/21 22:59 06:59 14:59 Intake Total 236 Balance 236 Intake: Oral 236 Other: # Voids 2 1 # Bowel Movements 0 Results CBC & Chem 7: 05/24/21 07:11 05/23/21 10:39 Labs: Abnormal Lab Results - Last 24 Hours (Table) 05/24/21 Range/Units 07:11 WBC 10.40 H (4.50-10.00) X 10*3/uL MCHC 31.6 L (32.0-37.0) g/dL Plt Count 635 H (140-440) X 10*3/uL Immature Gran # 0.05 H (0.00-0.04) X 10*3/uL Microbiology - Last 24 Hours (Table) 05/20/21 00:34 Blood Culture - Preliminary Blood No Growth after 96 hours 05/20/21 00:15 Blood Culture - Preliminary Blood No Growth after 96 hours 05/20/21 12:25 Gram Stain - Final Pleural Fluid Body Fluid Culture - Final Alpha Hemolytic Streptococcus
[2021-05-25] MEDS: SODIUM CHLORIDE 0.9% 1,000 ML IV SCH ×2 (02:39→09:47)
--- NOTE | 2021-05-25 07:20 | XR ---
EXAMINATION TYPE: XR chest 2V DATE OF EXAM: 05/25/2021 COMPARISON: 05/24/2021 HISTORY: Shortness of breath TECHNIQUE: Frontal and lateral views of the chest are obtained. FINDINGS: Right basilar pigtail catheter has been removed. Pleural parenchymal density right lung base persists essentially unchanged. No evidence of pneumothorax. Heart size is stable. Mediastinal structures are stable and grossly unremarkable. No evidence for hilar prominence. Degenerative changes dorsal spine. IMPRESSION: 1. Right basilar pigtail catheter has been removed. Pleural parenchymal density right lung base persi sts essentially unchanged. No evidence of pneumothorax.
[2021-05-25] MEDS: PANTOPRAZOLE 40 MG/10 ML VIAL IV SCH (07:34)
[2021-05-25] MEDS: NICOTINE 21MG/24HR PATCH TRANSDERM SCH (07:34)
[2021-05-25] MEDS: HEPARIN SODIUM,PORCINE/PF 5,000 UNIT/0.5 ML SYRINGE SQ SCH (07:35)
[2021-05-25] MEDS: FAMOTIDINE 20 MG/2 ML VIAL IV SCH (07:35)
[2021-05-25 07:54] VITALS: BP 152/94; PULSE 68; RESP 18; TEMP 97.8
--- NOTE | 2021-05-25 09:22 | P.PN ---
Subjective Progress Note Date: 05/25/21 Principal diagnosis: Right lung abscess, dyspnea, leukocytosis. Previous medical history of recent right lower lobe pneumonia March 2021, recent untreated abscessed tooth, chronic ongoing tobacco dependence, GERD POD #5 right-sided pigtail chest tube placement by interventional radiology The patient is currently sitting up in bed in the medical surgical unit in no acute distress. Denies pain or shortness of breath. Right-sided pigtail catheter was discontinued yesterday without incident, patient states he feels much better since removal of tube. Remains on IV antibiotics. Pleural fluid culture reporting alpha hemolytic strep, remains on IV Zosyn, infectious disease consulted and recommending IV antibiotics at discharge. Repeat chest x-ray reviewed this morning. No other new concerns. Objective - Vital Signs Vital signs: Vital Signs Temp 97.8 F 05/25/21 07:04 Pulse 68 05/25/21 07:04 Resp 18 05/25/21 07:04 BP 152/94 05/25/21 07:04 Pulse Ox 96 05/25/21 07:04 - Exam CONSTITUTIONAL: Appears comfortable, cooperative, no acute distress RESPIRATORY: Lungs sounds diminished in the right base. Respirations even, nonlabored. Currently on room air with oxygen saturation 96%. Able to achieve 2250 mL on incentive spirometry. Strong productive cough. CARDIOVASCULAR: S1, S2 present. Regular rate and rhythm. Palpable peripheral pulses bilaterally. No edema present. No calf pain or tenderness noted. GASTROINTESTINAL: Abdomen soft, nontender, nondistended. Active bowel sounds present 4 quadrants. Tolerating diet. GENITOURINARY: Continues to void clear, yellow urine INTEGUMENTARY: Skin is warm and dry with evidence of good perfusion. Area on back where pigtail catheter was recently removed remains covered with dry intact dressing NEUROLOGIC: Cranial nerves II through XII intact MUSKULOSKELETAL: Able to move all extremities, strength equal bilaterally, gait normal PSYCHIATRIC: Alert and oriented to person place and time, appropriate affect, intact judgment and insight - Allied health notes Allied health notes reviewed: nursing - Labs CBC & Chem 7: 05/24/21 07:11 05/23/21 10:39 Labs: Abnormal Lab Results - Last 24 Hours (Table) 05/24/21 Range/Units 07:11 WBC 10.40 H (4.50-10.00) X 10*3/uL MCHC 31.6 L (32.0-37.0) g/dL Plt Count 635 H (140-440) X 10*3/uL Immature Gran # 0.05 H (0.00-0.04) X 10*3/uL Microbiology - Last 24 Hours (Table) 05/20/21 00:34 Blood Culture - Preliminary Blood No Growth after 120 hours 05/20/21 00:15 Blood Culture - Preliminary Blood No Growth after 120 hours 05/20/21 12:25 Anaerobic Culture - Final Pleural Fluid - Imaging and Cardiology Chest x-ray: report reviewed, image reviewed Assessment and Plan Assessment: 1. Right lung abscess, status post right-sided pigtail chest tube placement by interventional radiology with instillation of lytic therapy 2. Recent right lower lobe pneumonia March 2021 3. Dyspnea secondary to above 4. Leukocytosis, secondary to above 5. Recent abscessed tooth, untreated 6. Chronic ongoing tobacco dependence Plan: 1. Repeat chest x-ray stable, patient may be discharged to home from our standpoint when agreeable by other services 2. No plans for surgical intervention at this time, although surgery was discus sed with the patient should current treatment fail 3. Antibiotic management per infectious disease 4. Patient was counseled regarding cessation of smoking 5. Medical management of other comorbidities per primary care service 6. Will see on an as-needed basis. Please call us with any questions Time with Patient: Greater than 30
--- NOTE | 2021-05-25 14:15 | P.PN ---
Subjective Progress Note Date: 05/25/21 Principal diagnosis: Lung abscess. Healthy 51-year-old male patient coming in for increased shortness of breath. The patient developed a pneumonia approximately March 2021. At that time the diagnosis was made in the emergency department at [facility]. He had a right lower lobe pneumonia. He was experiencing some pleuritic right-sided chest pain. He was given a combination of Augmentin and Diflucan he was discharged home. He was not hospitalized. The patient felt better, however he did not normalize completely. The pain is subsided. He continued to have some cough and shortness of breath and for that reason he went back to the emergency department and the patient had a CAT scan of the chest that showed a large right lower lobe posterior segment and severe segment fluid collection consistent with an abscess with adjacent atelectasis. His current white cell count is 20. He is on room air oxygen. No fever. No chills. No night sweats. Appetite is go od. Renal function stable. Electrodes are within normal limits. No history of COPD. Is a smoker. No nausea. No vomiting. No diarrhea. No other complaints. No recurrent bouts of pneumonias. No active any malignancy. On today's evaluation on 05/21/2021 patient seen in follow-up on medical s urgical floor. Yesterday a pigtail chest tube was put in in the right posterior chest, with initial drainage of 20 mL of purulent material, Pleuravac was connected, an additional 640 mL of purulent material was drained. On today's evaluation patient is on 3 L of oxygen his pulse ox is 92%, he states he breathing much more comfortably, some pressure in his right chest process, however it has improved since admission, he is on Zosyn and vancomycin for antibiotic coverage, no fever or chills overnight, his white blood cell count is improving on today's labs, follow-up chest x-ray is pending for today. On 05/22/2021 patient seen in follow-up on medical surgical floor, he is on room air, pulse ox is 97-99%, his been afebrile. Blood pressure is been stable, his right-sided pigtail chest tube remains in place, yesterday he received a dose of TPA instilled in his chest tube was in additional drainage of thick yellow fluid. So far all pleural fluid cultures have been negative. he remains on IV antibiotics. 's been tolerating ambulation. Chest x-ray shows pleural parenchymal changes of the right lung base that are stable in appearance. Today's labs have been reviewed, his white blood cell count is 10.5, hemoglobin is 12.8, electrolytes and renal profile are within normal limits. The patient is seen today 05/23/2021 and follow-up on the regular medical floor. He is awake and alert in no acute distress. He is now ambulating in the hallway. No worsening shortness of breath, cough or congestion. Maintaining good O2 saturations in the mid 90s on room air. He's been afebrile. Hemodynamically stable. His right-sided pigtail catheter appeared blocked today when up to place was attempted to be infused. Pleural fluid culture positive for alpha hemolytic streptococcus. White count 9.6. Hemoglobin 15.0. Sodium 142. Potassium 4.2. Creatinine 0.73. Vancomycin trough 21.2. He remains on vancomycin, Zosyn. Follow-up computed tomography scan of the chest reveals interval improvement in the patient's lung abscess. Persistent changes or pneumonia parapneumonic effusion difficult to exclude minimal empyema. 05/24/2021, the patient is feeling extremely well. No new complaints. CAT scan of the chest was done yesterday. There was obviously my notion of the right lung abscess, probably much gone with some residual atelectatic changes and some pleural reaction and thickening. In any rate, the catheter itself was not draining and I decided to follow-up the catheter yesterday. I discussed this with the CT surgery and we decided on removing the catheter out. The patient is feeling well. He has no specific complaints. He remains on IV Zosyn. He has also hemolytic strep in his pleural fluid. I'm going to ask infectious disease to come and evaluate him and decide on the course of outpatient antibiotic treatment being either oral or IV. The treatment is going to prolonged probably in the order of 4-6 weeks. Clinically stable. May be able to go home once we decide on the course of antibiotics. Progress note dated 05/25/2021. The patient is doing much better. His pigtail catheter on the right side was removed. He is going to have a PICC line placed today. Patient be discharged on antibiotics. The patient will need IV antibiotics for apparently 4-6 weeks according to infectious diseases. Clinically, the patient looks well. He sitting at the bedside, with his , and street close. He hopes to be discharged soon. He denies shortness breath, chest pain, chest discomfort, fever, chills, or any other complaints for that matter. No new labs today. Chest x-ray from today shows at the right basilar pigtail catheter has been removed. Pleural/parenchymal density at the right lung base persists. No evidence of pneumothorax noted. Objective - Vital Signs Vital signs: Vital Signs Temp 97.8 F 05/25/21 07:04 Pulse 68 05/25/21 07:04 Resp 18 05/25/21 07:04 BP 152/94 05/25/21 07:04 Pulse Ox 96 05/25/21 07:04 - Exam No acute distress, oriented 3. Room air saturations are between 96 and 97%. HEENT examination is grossly unremarkable. Neck supple. Full range of motion. No adenopathy thyromegaly or neck vein distention. Cardiovascular examination reveals regular rhythm rate. S1-S2 normal. No S3 or S4. No discernible murmur noted. Heart rate is 68 bpm. Lungs reveal scattered mild rhonchi, at the right lung base. Left lung is clear. No wheezes or crackles. Breath sounds are otherwise equal. Abdomen soft bowel sounds are heard. No masses or tenderness. Extremities are intact. No cyanosis clubbing or edema. Skin is without rash or lesion. Neurologic examination is brief but nonfocal. - Labs CBC & Chem 7: 05/24/21 07:11 05/23/21 10:39 Labs: Microbiology - Last 24 Hours (Table) 05/20/21 00:34 Blood Culture - Preliminary Blood No Growth after 120 hours 05/20/21 00:15 Blood Culture - Preliminary Blood No Growth after 120 hours 05/20/21 12:25 Anaerobic Culture - Final Pleural Fluid Assessment and Plan Assessment: Right lung abscess, status post pigtail catheter placement, with instillation of alteplase. Right lung pneumonia/right lung abscess, secondary to alpha hemolytic streptococcus. History of tobacco use. Plan: Plan dated 05/25/2021. The plan is to potentially discharged the patient today after the PICC line is placed. The patient be discharged home on Rocephin, 2 g every 24 hours. He'll be treated for about 4-6 weeks. No additional recommendations are made. Prognosis is guarded. We will continue to follow. The patient will follow-up in the office likely with my partner. No additional recommendations are made at this time. Time with Patient: Less than 30
--- NOTE | 2021-05-25 15:56 | IR ---
EXAMINATION TYPE: IR cvc insert >=5 years DATE OF EXAM: 05/25/2021 COMPARISON: NONE CLINICAL HISTORY: Infection Needs long-term intravenous access for antibiotics. PROCEDURE: Hand hygiene obtained with soap and water and alcohol-based hand rub. After informed consent, the skin overlying the left basilic vein was localized with ultrasound and no maxine to be compressible and patent. An ultrasound image was obtained and submitted on the patient's c turner. The overlying skin was prepped and draped and Lidocaine was used for local anesthesia. A skin carly was made with a scalpel. Access was gained to the vein under ultrasound guidance with a 21 gau ge needle and a 0.018 inch wire was advanced. Access site was dilated with Peel-Away sheath and cath eter tailored to the appropriate length and advanced such that the distal tip is at the cavoatrial ju nction. Spot image was obtained verifying placement. Catheter was fixed to the skin and a sterile d ressing was placed following hemostasis. Catheter was aspirated and flushed with saline. Patient wa s discharged in stable condition without complication.Maximal barrier technique is utilized. Ultraso und image is documented on the chart. Ultrasound used with sterile technique. Fluoro time and fluoroscopic images submitted to document procedure: 0.5 minutes fluoroscopy time, 18 3 intraoperative C-arm images document the procedure IMPRESSION: STATUS POST ULTRASOUND AND FLUOROSCOPIC GUIDED PICC LINE PLACEMENT, READY FOR USE. THIS PROCEDURE WAS PERFORMED BY THE UNDERSIGNED.
--- NOTE | 2021-05-25 16:57 | PN ---
PROGRESS NOTE DATE OF SERVICE: 05/25/2021 REASON FOR FOLLOWUP: Right-sided empyema. INTERVAL HISTORY: The patient is afebrile. The patient is feeling slightly better. Pain to the right lower chest has decreased in intensity. Did have a cough ( ) drainage. No nausea, no vomiting. No abdominal pain, no diarrhea. PHYSICAL EXAMINATION: Blood pressure 152/90 with a pulse of 68, temperature 97.8. He is 96% on room air. General description is a middle-aged male up in the bed in no distress. Respiratory system: Unlabored breathing with decreased breath sounds at the bases, no wheeze. Heart: S1, S2. Regular rate and rhythm. Abdomen soft, no tenderness. LABS: No new labs have been obtained today. DIAGNOSTIC IMPRESSION AND PLAN: Patient with right-sided empyema status post chest tube which has been discontinued. Repeat CT did show improvement ( ) complete resolution. Plan is to get a PICC line for outpatient Rocephin 2 grams daily for 4 weeks. Family at the bedside, multiple questions were answered. MMODL / IJN: [id number] /
[2021-05-25] MEDS ORDERED: PANTOPRAZOLE 40 MG TABLET PO SCH (17:30)
--- NOTE | 2021-05-25 19:56 | P.DS ---
Providers Date of admission: 05/19/21 23:49 Expected date of discharge: 05/25/21 Attending physician: Drew Shaffer Consults: 05/19/21 23:48 Consult Physician Routine Consulting Provider: Claribel Fuentes Consult Reason/Comments: abscess Do you want consulting provider notified?: Yes 05/21/21 11:17 Consult Physician Routine Consulting Provider: Emma Gomez Consult Reason/Comments: right lung empyema Do you want consulting provider notified?: Yes 05/22/21 14:51 Consult Physician Routine Consulting Provider: Krystina Rivas Consult Reason/Comments: infected tooth Do you want consulting provider notified?: Yes 05/24/21 11:02 Consult Physician Routine Consulting Provider: Og Love Consult Reason/Comments: antibiotic, lung abscess Do you want consulting provider notified?: Yes Primary care physician: [facility] Course: This is a pleasant 51 years old male, follows with Dr. Renee with no significant past medical history. Patient states that last late March he was an [facility] for pneumonia where he was treated with antibiotics and steroids, patient felt better and he couldn't lie down and then he was discharged home however over the last week and a half he started to develop coughing and headache when he is lying down with only mild dyspnea, no significant dyspnea. No chest pain. No fever. No chest in urine or bowel habits. Patient went back to the hospital again on CAT scan of the chest showed large right lower lobe fluid collection: Consistent with an abscess and adjacent atelectasis. Patient also is a smoker who decided to quit yesterday, Chest x-ray showing small right effusion with known right lung abscess. New placement of a pigtail pleural catheter as the right base. Patient is a started on IV vancomycin and Zosyn 05/21/2021 Patient is a breathing is much improved, he is minimally dyspneic. Vital signs stable and he is afebrile High WBC significantly improved down to 13 Chest x-ray showing significant improvement in his lung abscess He still has pigtail in his right lower lung placed by interventional radiologist, cardiothoracic surgery team were consulted today for of the base and normal saline infusion into the abscess He remains on broad-spectrum antibiotics with Zosyn and IV vancomycin and no muscle and aunt 100 mL per hour 05/22/2021 Patient breathing is quiet and stable hemodynamically stable Still has right lower chest pigtail posteriorly to drain his lung abscess and empyema, had another round of TPA injection by cardiothoracic surgery team today and this had still draining Body fluid culture came back positive for alpha hemolytic streptococcus I still covered with Zosyn and IV vancomycin with normal saline at 75 mL per hour 05/23/2021 Patient's symptoms improving, his almost asymptomatic with no significant dyspnea. Saturating well on Coumadin air. His leukocytosis is back to normal at 9.6. CT of the chest showing improvement abscess, still have some pneumonia and parapneumonic effusion possible minimal empyema. He received another dose of his PEG tube which was planned to be removed by surgery team As one blood culture is growing out for about streptococcus. Mycin was stopped and continued on Zosyn Possible IV antibiotics upon discharge 05/24/2021 Patient breathing status is stable. Still have right pigtail chest tube in his right lung, able to move around with no difficulty. Chest x-ray from today showing pigtail tube in the right lung base with pleural thickening and patchy basal density which is consistent with patient history of lung abscess and associated pleural effusion or empyema. However pigtail catheter is suspected to be obstructed and possibly could be removed by cardiothoracic surgery team Culture is growing alpha hemolytic streptococcus and he might benefit from prolonged IV antibiotics upon discharge Infectious disease team were consulted for this purpose 05/25/2021: Patient's pigtail catheter was removed yesterday. Breathing better. Good oral intake. Patient is counseled length about smoking. Also his is present was a smoker. They will be discharged with the nicotine patch. PICC line is being placed. Patient getting 2 more weeks of IV ceftriaxone per ID. Discussed with case loader operator. Cleared by pulmonary and ID. Patient is cultures were positive for alpha hemolytic streptococcus. Blood cultures were negative. Discussion and discharge planning more than 35 minutes Consultation: Dr. Fuentes partners from pulmonary Dr. Love from ID Interventional radiology On examination: 97.8, 68, 18, 150-194, 96% room air Lungs: Respiratory rate normal. Lungs demonstrate breath sounds Cardiovascular: First seconds are normal, no edema Psych: AO 3, mood and affect normal Investigations: WBC 10.4 hemoglobin 10.6 potassium 4.2 creatinine 0.73 Pleural fluid culture: Alpha hemolytic streptococcus Blood cultures negative Assessment and plan: -Right lung abscess with culture positive for alpha hemolytic streptococcus. Chest tube was placed and removed. Patient will complete 2 more weeks of IV ceftriaxone -COPD in a current smoker Asymptomatic. -Chronic nicotine dependence, cigarette smoker Counseled. Nicotine patch -GERD Nexium continue Disposition: Home Weekly CBC/BMP Plan - Discharge Summary Discharge Rx Participant: Yes New Discharge Prescriptions: New cefTRIAXone [Rocephin] 2 gm IVPB Q24H #14 vial Nicotine 21Mg/24Hr Patch [Habitrol] 1 patch TRANSDERM DAILY #14 patch Continue Fexofenadine HCl [Aubrie Allergy] 180 mg PO DAILY Esomeprazole Magnesium [NexIUM 24Hr] 20 mg PO DAILY Discharge Medication List Esomeprazole Magnesium [NexIUM 24Hr] 20 mg PO DAILY 05/19/21 [History] Fexofenadine HCl [Aubrie Allergy] 180 mg PO DAILY 05/19/21 [History] Nicotine 21Mg/24Hr Patch [Habitrol] 1 patch TRANSDERM DAILY #14 patch 05/25/21 [Rx] cefTRIAXone [Rocephin] 2 gm IVPB Q24H #14 vial 05/25/21 [Rx] Follow up Appointment(s)/Referral(s): Gio Renee MD [Primary Care Provider] - 05/27/21 10:30 am (With Nieves porter Cole. ) [facility], [NON-STAFF] - As Needed [facility], [REFERRING] - As Needed Og Love MD [STAFF PHYSICIAN] - 06/09/21 1:15 pm Claribel Fuentes MD [STAFF PHYSICIAN] - 06/11/21 2:45 pm (With EDWIN Ley) Patient Instructions/Handouts: Pleural Empyema (DC), Peripherally Inserted Central Catheters and Midline Catheters (DC) Activity/Diet/Wound Care/Special Instructions: DISCHARGE INSTRUCTIONS: 1. No driving for 2 weeks, or until physician gives their ok. 2. No lifting, pushing, or pulling more than 10 pounds for 2 weeks. The physician will advise of any restriction changes. 3. Continue pain control per as needed orders. Alternate acetaminophen (Tylenol) and ibuprofen (Motrin/Advil) for pain. 4. Continue with incentive spirometry and splinting until otherwise directed by the physician. 5. Leave chest tube dressing for 48 hours. After that, remove all dressings and shower daily. 6. Routine incision care. No powders, lotions, ointments on incisions. 7. Smoking cessation counseling and program information provided. Discharge Disposition: HOME WITH HOME HEALTH SERVICES
== END 2021-05-25 15:31 | disposition home health service (06) | DRG 178 ==
LOC: EC 22:36 → 4SSUR 23:49
PROVIDERS: ADMIT Hospitalist; ATTEND Hospitalist
PROC: 0W9930Z Drainage of Right Pleural Cavity with Drainage Device, Percutaneous Approach (ICD-10-PCS; principal; 2021-05-20)
PROC: 3E03317 Introduction of Other Thrombolytic into Peripheral Vein, Percutaneous Approach (ICD-10-PCS; 2021-05-22)
PROC: 02HV33Z Insertion of Infusion Device into Superior Vena Cava, Percutaneous Approach (ICD-10-PCS; 2021-05-25)
PROC: B5181ZA Fluoroscopy of Superior Vena Cava using Low Osmolar Contrast, Guidance (ICD-10-PCS; 2021-05-25)
PROC: B548ZZA Ultrasonography of Superior Vena Cava, Guidance (ICD-10-PCS; 2021-05-25)
PROC: 05HC33Z Insertion of Infusion Device into Left Basilic Vein, Percutaneous Approach (ICD-10-PCS; 2021-05-25)
DX: J85.1 Abscess of lung with pneumonia (principal); J98.11 Atelectasis; B95.0 Streptococcus, group A, as the cause of diseases classified elsewhere; F17.210 Nicotine dependence, cigarettes, uncomplicated; J30.2 Other seasonal allergic rhinitis; K21.9 Gastro-esophageal reflux disease without esophagitis; R00.0 Tachycardia, unspecified; K04.7 Periapical abscess without sinus; Z20.822 Contact with and (suspected) exposure to COVID-19; Z71.6 Tobacco abuse counseling
CPT/HCPCS: 32551; 36573; 71045; 71046; 71250; 77012; 80048; 80053; 80202; 82565; 83690; 83735; 84100; 85025; 85610; 87040; 87070; 87075; 87102; 87116; 87205; 87206; 88108; 88305; 89050; 94640; 94760